=== PATIENT | female | born 1995 | race Caucasian/White ===

== ENCOUNTER 2021-09-06 18:47 | Inpatient (IN) | payer BC, SELFPAY ==
[2021-09-06 22:39] VITALS: BMI 27.9
[2021-09-06 23:12] VITALS: BP 93/71; PULSE 64; TEMP 36.2; O2SAT 97
--- NOTE | 2021-09-07 00:46 | PC.ADMIT ---
Patient is a 26 year old transgender female, admitted as a CV admission to [facility] from [facility] ED and arrived on the unit 09/06/21 at 1855. Patient was very tired and declined to sign legals and releases. She did answer a few questions and said that she was at [facility] earlier and had strong SI to cut her wrists and called an ambulance to transport her to [facility]. Patient lives in [place] with her family and has a history of alcohol use with several alcohol treatment center admissions. Patient also has a history of suicidality with no previous attempts reported. Patient's medications were verified with the patient as well as the list from [facility]. According to the [facility] assessment patient has a history of being off of her medications and will immediately start drinking alcohol again, apparently a pint of vodka straight. She has been sober since July 2021. Patient was given a brief orientation to the unit as well as a snack to eat. She claimed to be very tired and went to bed. At that time she mentioned that she wears pullups but did not elaborate. Dr. Mcmullen informed of admission and orders were obtained. Patient will be on 15 minute safety checks.
[2021-09-07 06:42] VITALS: BP 97/56; PULSE 55; RESP 14; TEMP 36.4; O2SAT 97
[2021-09-07] MEDS: Spironolactone 25 MG TABLET 50 MG PO ×2 (09:02→21:24)
[2021-09-07] MEDS: Escitalopram Oxalate 20 MG TABLET PO (09:02)
[2021-09-07 09:10] LABS: Estimated Average Glucose 94 mg/dL; Hemoglobin A1c % 4.9 %
--- NOTE | 2021-09-07 09:27 | PC.NURSE ---
Signed three-day on Thursday 09/07, up on Sunday 09/10
[2021-09-07 09:28] LABS: Alanine Aminotransferase 18 U/L (0-31); Alkaline Phosphatase 58 U/L (39-117); Anion Gap 12 (12-20); Aspartate Amino Transferase 15 U/L (5-31); Bilirubin Total 0.4 mg/dL (0.0-1.0); Blood Urea Nitrogen 12 mg/dL (9-16); Calcium 9.1 mg/dL (8.4-10.2); Carbon Dioxide 27 mmol/L (22-29); Chloride 104 mmol/L (96-108); Cholesterol 182 mg/dL; Creatinine Clr Calc Pharmacy 131.7; Estimated Glomerular Filt Rate > 60; Glucose Fasting 87 mg/dL (60-99); HDL Cholesterol 48 mg/dL; LDL Cholesterol Calculated 119 mg/dl; Potassium 4.8 mmol/L (3.3-5.1); Sodium 138 mmol/L (135-145); Total Protein 6.6 g/dL (6.5-8.0); Triglycerides 78 mg/dL
[2021-09-07 09:55] LABS: Free T4 (Free Thyroxine) 0.98 ng/dL (0.71-1.85); Thyroid Stimulating Hormone 1.24 uIU/mL (0.32-4.0)
[2021-09-07 10:01] LABS: Vitamin B12 631 pg/mL (200-900)
[2021-09-07] MEDS: hydrOXYzine HCL 50 MG TABLET PO ×2 (13:23→18:55)
[2021-09-07] MEDS: estradioL 0.5 MG TABLET 3 MG PO ×2 (13:23→21:25)
--- NOTE | 2021-09-07 16:01 | HO.PSYADMNOT ---
HPI Date of Service: 09/07/21 Chief Complaint: SI Sources of Information: patient interviewed, chart reviewed and crisis/core team assessment reviewed HPI Subjective Notes: Tellez Warning and Conditional Voluntary Healthcare Proxy: No Guardianship: No Medical Problems Affecting Mental Status: No Narrative: 26 yo transgender male to female, (Mar 2020), hx of Autism Spectrum disorder, alcohol use disorder, transfer from [facility] ER [facility]. Reported an increase in anxiety and resulting SI with plan to cut her wrist, an increase in depressive sx and anergia. Mother reported a correlation with increase in nicotine consumption and decline in mood-pt reportedly had been smoking prior to this report of symptoms. Today, Salina states I was suicidal on Monday because I lost a friend recently. Reports she is not feeling suicidal today and asks for discharge. She has signed a TDN and states she does not require this level of care. Reports she uses Lexapro for depressive sx with efficacy, however, this was stopped this past week due to increasing symptoms. Per mother, pt has had recent medicine changes which she has struggled with giving them time to take effect. Past Psychiatric History: IP: Reports a brief admit last week when her friend Reports a few admissions last month for depression Reports a history of admissions for depression in the past. OP: [facility] PCP Rich Huff is pt's prescriber [phone] Therapist and Prescriber to be assigned Per mother, no history of bipolar disorder Med review with [place], [place]. Message left with pt's mother to confirm status of Campral-not taking, Olanzapine- not taking, Clonidine-not taking, Omeprazole-uses prn Trials: Keppra, Campral, Clonidine, Gabapentin, Prozac, Abilify, Wellbutrin, Celexa SA: 2020 Hanging attempt Medical Evaluation Reviewed: Yes [facility] Narrative: Autism spectrum disorder-Asperger's by history Family History: Bipolar Social History: Lives with parents Born male, transition Mar 2020. Raised by parents. Two older sisters. Unemployed [employer]. Working on [employer] Substance History: Alcohol, Cannabis, Tobacco. Alcohol- 2015, last use July 2021. Hx of several rehab admits, most recently 3 weeks ago Attends Cann[facility]-last use 2019. using daily which made her ill so she stopped Nicotine-began in rehab-worsens her mental health sx Trauma History: Recent of a friend Losses of friendships Diagnostics Vital Signs (24Hr): Vital Signs - 24 hr 09/06/21 23:12 09/07/21 06:42 Temperature 97.1 F 97.6 F Pulse Rate 64 55 Respiratory Rate 14 Blood Pressure 93/71 97/56 L Pulse Oximetry 97 97 Oxygen Delivery Method Room Air Room Air BMI result Body Mass Index 27.9 Labs Results: 09/07/21 08:09 Labs: Laboratory Results - last 48 hr 09/07/21 09/07/21 09/07/21 08:09 08:09 08:09 Sodium 138 Potassium 4.8 Chloride 104 Carbon Dioxide 27 Anion Gap 12 BUN 12 Creatinine 0.82 Estim Creat Clear Calc 131.7 Estimated GFR > 60 Fasting Glucose 87 Estimat Average Glucose 94 Hemoglobin A1c % 4.9 Calcium 9.1 Total Bilirubin 0.4 AST 15 ALT 18 Alkaline Phosphatase 58 Total Protein 6.6 Albumin 4.0 Triglycerides 78 Cholesterol 182 LDL Cholesterol, Calc 119 HDL Cholesterol 48 Vitamin B12 631 Folate 18.0 TSH 1.24 Free T4 0.98 Meds/Allergies Meds Home Medications Medication Instructions Recorded Confirmed Type Lexapro 20 mg PO DAILY 09/06/21 09/06/21 History Strattera 40 mg PO DAILY 09/06/21 09/06/21 History estradiol 3 mg PO BID 09/06/21 09/06/21 History hydroxyzine HCl 50 mg PO Q4H PRN Anxiety 09/06/21 09/06/21 History spironolactone 50 mg PO BID 09/06/21 09/06/21 History Allergies Allergies Allergy/AdvReac Type Severity Reaction Status Date / Time naltrexone Allergy Unknown Unknown Verified 09/07/21 16:59 haloperidol [From Haldol] Allergy Unknown Verified 09/06/21 22:06 Penicillins Allergy Unknown Verified 09/06/21 20:32 zyprexa AdvReac Intermediate Confusion Uncoded 09/07/21 17:21 risperdal AdvReac Unknown Uncoded 09/08/21 10:27 Mental Status Exam Mental Status Exam Patient Appearance: Fatigued Patient Orientation: Person, Place, Time and Situation Level of Consciousness: Alert Patient Behavior: Guarded, Talkative, Cooperative, Suspicious, Anxious, Fearful, Fatigued and Distractible Mood Description: Anxious and Apprehensive Affect Description: Anxious and Apprehensive Patient Cognition Impaired: No Ability to Follow Directions: Good Speech Pattern: Spontaneous Speech, Soft-Spoken and Cofabulation Memory Description: Remote Impaired and Episodic Impaired Hallucinations: None Delusions: Not Present Perceptual Disturbances: Depersonalization and Derealization Thought Process: Distracted Thought Content: positive for [place], positive for Circumstantial, positive for Tangential and positive for Suicidal Ideation (denies) Depressive Symptoms: Increased Anxiety and Difficulty Concentrating Abnormal Motor Activity Signs and Symptoms: Restlessness Judgement: Fair Assessment & Plan Assessment & Plan (1) Autism spectrum disorder: Status: Acute Code(s): F84.0 - Autistic disorder (2) Recurrent major depression-severe: Status: Acute Code(s): F33.2 - Major depressive disorder, recurrent severe without psychotic features (3) Alcohol use disorder, moderate, in early remission, dependence: Status: Acute Code(s): F10.21 - Alcohol dependence, in remission Plan 26 yo female, hx of depression, autism spectrum-asperger's disorder, alcohol use disorder with several recent in pt admission for SI. Pt became suicidal while at the [facility] and is transferred from [facility]. Meds clarified with [facility], [facility] and pt's mother due to recent changes. Pt reports that she is no longer suicidal, had thoughts for 1-2 hours on 09/04, has good coping skills, has reasons to live and is asking to discharge. Plan: Re-establish regime- pt has had some recent changes and needs to allow time to evaluate efficacy. Family meeting with mom Collateral contact as needed. Patient educated on: therapeutic strategies Guardian/Caregiver educated on: therapeutic strategies Informed Consent: further education needed Reason for continued inpatient stay Substantial Risk for: harm to self, inability to function and rapid decompensation
[2021-09-07 17:20] VITALS: BP 88/48; PULSE 58; TEMP 36.4; O2SAT 98
[2021-09-07] MEDS: Gabapentin 400 MG CAPSULE 800 MG PO (21:25)
--- NOTE | 2021-09-07 22:33 | PC.NURSE ---
Salina spoke with this grant writer and said that she usually takes Gabapentin 800 mg po tid.
--- NOTE | 2021-09-07 22:34 | PC.NURSE ---
Patient retracted her 3 day notice and is back to being a CV admission.
[2021-09-08 06:00] VITALS: PULSE 58; TEMP 36.2; O2SAT 98
[2021-09-08] MEDS: Spironolactone 25 MG TABLET 50 MG PO ×2 (08:57→20:33)
[2021-09-08] MEDS: Escitalopram Oxalate 20 MG TABLET PO (08:57)
[2021-09-08] MEDS: estradioL 0.5 MG TABLET 3 MG PO ×2 (08:57→20:32)
[2021-09-08] MEDS: Gabapentin 400 MG CAPSULE 800 MG PO ×3 (08:57→20:34)
--- NOTE | 2021-09-08 09:14 | P.CONHOSP_ITS ---
History of Present Illness Data of Consult Service Date: 09/08/21 Primary Care Provider: Unknown Physician HPI Reason for consult: Routine Medical H&P Patient is seen and examined on M5, RN is present for the interview. Some parts of the H&P are obtained from the psychiatrist admission H&P as the patient is not forthcoming with baseline history. This is a 26 yo transgender M to F (per psych notes) who is admitted to M5. Medical consult requested for routine medical H&P. Pt currently denies any medical complaints. Pt denies any PMH/PSH/FH/SH -- please see the admission psych H&P for details. Review of Systems Review of Systems: patient not forthcoming with symptoms, but denies any medical complaints. [facility] Household Members: Family Housing: House Do you presently have visiting nurse or other home services: No Unable to assess alcohol history related to: Unknown Patient Tobacco Use Status: Current everyday Tobacco user Tobacco use type: Cigarette Cigarette Packs Per Day: 0.5 Cigarettes Per Day: 10.0 Years Smoked: 2 Smoked in Last 30 Days: Yes e-Cigarette/Vaping Use: Never Used Patient Interested in Nicotine Replacement: Yes Patient Given Instructions on How to Stop Smoking: Yes Date Education Initiated: 09/06/21 Second Hand Smoke Exposure: Yes Use of substances other than those prescribed or required for medical reasons: Yes Substance Use Type: Marijuana Substance Use Frequency: Occasionally Currently Displaying Signs/Symptoms of Drug Intoxication Withdrawal: No Any prior treatment program specific to substance use: Yes Have you been hit, kicked, punched, or otherwise hurt by someone within the past year? If so, by whom?: No Do you feel safe in your current relationship?: No Is there a partner from a previous relationship who is making you feel unsafe now?: No Spiritual Healthcare Practices: none Catholic Healthcare Practices: none Cultural Healthcare Practices: none Advance Directives: No Advance Directives Information Provided: No Do you have thoughts of harming others: None Do you have a plan to hurt others: No Plan Recently lost weight without trying: No How much weight loss: Not applicable Eating poorly because of decreased appetite: No Nutrition screen score: 0 Nutrition Risks: No Nutritional Risk Patient : No : No Poor oral hygiene: No service: No Sexual orientation: Transgender Meds Allergies Allergy/AdvReac Type Severity Reaction Status Date / Time naltrexone Allergy Unknown Unknown Verified 09/07/21 16:59 haloperidol [From Haldol] Allergy Unknown Verified 09/06/21 22:06 Penicillins Allergy Unknown Verified 09/06/21 20:32 zyprexa AdvReac Intermediate Confusion Uncoded 09/07/21 17:21 Active Medications: Current Medications Acetaminophen (Acetaminophen 325 Mg Tablet) 650 mg PO Q6H PRN PRN Reason: Headache/Pain Mild Scale (1-3) Al Hydroxide/Mg Hydroxide (Magnesium Hydrox/Alum Hydrox 30 Ml Oral.Susp) 30 ml PO Q6H PRN PRN Reason: Heartburn/Nausea Escitalopram Oxalate (Escitalopram Oxalate 20 Mg Tablet) 20 mg PO DAILY [facility] Last Admin: 09/08/21 08:57 Dose: 20 mg Estradiol (Estradiol 0.5 Mg Tablet) 3 mg PO BID [facility] Last Admin: 09/08/21 08:57 Dose: 3 mg Gabapentin (Gabapentin 400 Mg Capsule) 800 mg PO BID [facility] Last Admin: 09/08/21 08:57 Dose: 800 mg Hydroxyzine HCl (Hydroxyzine Hcl 25 Mg Tablet) 25 mg PO BEDTIME PRN PRN Reason: Anxiety Hydroxyzine HCl (Hydroxyzine Hcl 50 Mg Tablet) 50 mg PO Q4H PRN PRN Reason: Anxiety Last Admin: 09/07/21 18:55 Dose: 50 mg Magnesium Hydroxide (Milk Of Magnesia 30 Ml Oral.Susp) 30 ml PO DAILY PRN PRN Reason: Constipation Nicotine Polacrilex (Nicotine Polacrilex 2 Mg Gum) 4 mg BUCCAL Q2H PRN PRN Reason: Nicotine Cravings Non-Formulary Medication (Antabuse) 500 mg PO DAILY [facility] Non-Formulary Medication (Strattera) 40 mg PO DAILY [facility] Spironolactone (Spironolactone 25 Mg Tablet) 50 mg PO BID [facility] Last Admin: 09/08/21 08:57 Dose: 50 mg Trazodone HCl (Trazodone Hcl 50 Mg Tablet) 50 mg PO BEDTIME PRN PRN Reason: Insomnia Home Medications Medication Instructions Recorded Confirmed Last Taken Type Lexapro 20 mg PO DAILY 09/06/21 09/06/21 09/06/21 09:19 History Strattera 40 mg PO DAILY 09/06/21 09/06/21 Unknown History estradiol 3 mg PO BID 09/06/21 09/06/21 09/06/21 09:19 History hydroxyzine HCl 50 mg PO Q4H PRN Anxiety 09/06/21 09/06/21 09/06/21 09:19 History spironolactone 50 mg PO BID 09/06/21 09/06/21 09/06/21 09:18 History Physical Exam Vital Signs and Narrative: Vital Signs: Last Vital Signs Temp 97.1 F 09/08/21 06:00 Pulse 58 09/08/21 06:00 Resp 14 09/07/21 06:42 BP 88/48 L 09/07/21 17:20 Pulse Ox 98 09/08/21 06:00 O2 Del Method 09/08/21 06:00 BMI result Body Mass Index 27.9 Const: Other: General - no acute distress, appears comfortable Cardiovascular - regular rate and rhythm, S1-S2 Lungs - normal respiratory effort, clear to auscultation bilaterally, no wheezing Abdomen - soft, nontender, no rebound or guarding Extremities - no edema bilaterally Neuro - awake and alert, no focal deficits; cn 2-12 intact b/l Results Labs CBC and Chem 7: 09/07/21 08:09 Labs: Laboratory Results - last 24 hr 09/07/21 09/07/21 08:09 08:09 Anion Gap 12 Estim Creat Clear Calc 131.7 Estimated GFR > 60 Fasting Glucose 87 Calcium 9.1 Total Bilirubin 0.4 AST 15 ALT 18 Alkaline Phosphatase 58 Total Protein 6.6 Albumin 4.0 Triglycerides 78 Cholesterol 182 LDL Cholesterol, Calc 119 HDL Cholesterol 48 Vitamin B12 631 Folate 18.0 TSH 1.24 Free T4 0.98 Assessment and Plan (1) Routine medical exam: Status: Acute Plan 26 yo transgender M to F who is admitted to . Medical consult requested for routine medical H&P. The patient appaers to be medically stable at this time. Would continue baseline meds as appropriate. Will sign off at this time. Please reconsult PRN.
[2021-09-08] MEDS: hydrOXYzine HCL 50 MG TABLET PO ×2 (10:44→20:35)
--- NOTE | 2021-09-08 17:29 | P.PNPSI_ITS ---
Subjective Subjective Date of Service: 09/08/21 Reason For Visit: SI Subjective Notes: Conditional Voluntary Healthcare Proxy: No Guardianship: No Medical Problems Affecting Mental Status: No Interim History: Family meeting via Zoom with pt, parents, PCP, Candelario RUSSELL. Pt retracted TDN today. She started the meeting by talking about feeling Lexapro was not effective. Reports increased depression, social anxiety and not feeling any positive change. Parents discussed their observations of negative effects of Olanzapine on pt's mood and behavior when using. Discussed benzodiazepines helping anxiety and wanting to have these scheduled-review of effects on addictive illness. Parents suggested pt utilize time to discuss why she is depressed, anxious and why symptoms increase when she is not using substances, along with discussion of identification of the precipitant. Parents describe pt as having acute panic episodes where she calls 911, demands in pt care- resulting in 25 admissions to facilities in the past 4 months-she has been home the longest for 4-5 days at the end of May 2021. Pt asked appropriate questions regarding her hormone therapy and this possibly effecting her mood and emotions. Discussed how she finds smoking helpful-parents disagree as find pt has more emotional sx when using nicotine. Pt discussed feeling more emotions since becoming sober and feels her mental health has been less stable with stronger sobriety. States she is needing to learn about her emotions and feelings. Pt and parents identify a 3-4 day cycle of crisis and several recent admits and discharges. PCP discussed IOP options within the community to add more support and structure to her care. Medication Compliance: Yes Side effects from medications: No Attending Groups: Yes Review of Systems Acute medical concerns: No Medical Review of Systems: unchanged Review of Systems Reports behavioral changes Psychiatric: Reports anxiety, Reports behavioral changes, Reports depression, Reports difficulty concentrating, Reports mood swings and Reports suicidal ideation (denies today) Mental Status Exam Mental Status Exam Patient Appearance: Appropriate Patient Orientation: Person, Place, Time and Situation Level of Consciousness: Alert Patient Behavior: Talkative, Cooperative, Anxious, Fearful, Fatigued, Distractible, Isolative and Poor Eye Contact Mood Description: Anxious and Apprehensive Affect Description: Anxious and Apprehensive Patient Cognition Impaired: No Ability to Follow Directions: Good Speech Pattern: Spontaneous Speech and Soft-Spoken Memory Description: Episodic Impaired Hallucinations: None Delusions: Not Present Perceptual Disturbances: Depersonalization and Derealization Thought Process: Distracted Thought Content: positive for [place], positive for Circumstantial, positive for Tangential and positive for Suicidal Ideation (denies) Depressive Symptoms: Increased Anxiety and Difficulty Concentrating Abnormal Motor Activity Signs and Symptoms: Restlessness Judgement: Fair Diagnostics Vital Signs (24Hr): Vital Signs - 24 hr 09/08/21 06:00 Temperature 97.1 F Pulse Rate 58 Pulse Oximetry 98 Oxygen Delivery Method Room Air BMI result Body Mass Index 27.9 Labs Results: 09/07/21 08:09 Labs: Laboratory Results - last 48 hr 09/07/21 09/07/21 09/07/21 08:09 08:09 08:09 Sodium 138 Potassium 4.8 Chloride 104 Carbon Dioxide 27 Anion Gap 12 BUN 12 Creatinine 0.82 Estim Creat Clear Calc 131.7 Estimated GFR > 60 Fasting Glucose 87 Estimat Average Glucose 94 Hemoglobin A1c % 4.9 Calcium 9.1 Total Bilirubin 0.4 AST 15 ALT 18 Alkaline Phosphatase 58 Total Protein 6.6 Albumin 4.0 Triglycerides 78 Cholesterol 182 LDL Cholesterol, Calc 119 HDL Cholesterol 48 Vitamin B12 631 Folate 18.0 TSH 1.24 Free T4 0.98 Medications Medications Current Medications Acetaminophen (Acetaminophen 325 Mg Tablet) 650 mg PO Q6H PRN PRN Reason: Headache/Pain Mild Scale (1-3) Al Hydroxide/Mg Hydroxide (Magnesium Hydrox/Alum Hydrox 30 Ml Oral.Susp) 30 ml PO Q6H PRN PRN Reason: Heartburn/Nausea Escitalopram Oxalate (Escitalopram Oxalate 20 Mg Tablet) 20 mg PO DAILY [facility] Last Admin: 09/08/21 08:57 Dose: 20 mg Estradiol (Estradiol 0.5 Mg Tablet) 3 mg PO BID [facility] Last Admin: 09/08/21 08:57 Dose: 3 mg Gabapentin (Gabapentin 400 Mg Capsule) 800 mg PO TID [facility] Last Admin: 09/08/21 14:42 Dose: 800 mg Hydroxyzine HCl (Hydroxyzine Hcl 25 Mg Tablet) 25 mg PO BEDTIME PRN PRN Reason: Anxiety Hydroxyzine HCl (Hydroxyzine Hcl 50 Mg Tablet) 50 mg PO Q4H PRN PRN Reason: Anxiety Last Admin: 09/08/21 10:44 Dose: 50 mg Magnesium Hydroxide (Milk Of Magnesia 30 Ml Oral.Susp) 30 ml PO DAILY PRN PRN Reason: Constipation Nicotine Polacrilex (Nicotine Polacrilex 2 Mg Gum) 4 mg BUCCAL Q2H PRN PRN Reason: Nicotine Cravings Patient Own Med ( (Disulfiram 500mg)) 500 mg PO DAILY [facility] Last Admin: 09/08/21 14:40 Dose: 500 mg Spironolactone (Spironolactone 25 Mg Tablet) 50 mg PO BID [facility] Last Admin: 09/08/21 08:57 Dose: 50 mg Trazodone HCl (Trazodone Hcl 50 Mg Tablet) 50 mg PO BEDTIME PRN PRN Reason: Insomnia Allergies Allergies Allergy/AdvReac Type Severity Reaction Status Date / Time naltrexone Allergy Unknown Unknown Verified 09/07/21 16:59 haloperidol [From Haldol] Allergy Unknown Verified 09/06/21 22:06 Penicillins Allergy Unknown Verified 09/06/21 20:32 zyprexa AdvReac Intermediate Confusion Uncoded 09/07/21 17:21 risperdal AdvReac Unknown Uncoded 09/08/21 10:27 Assessment & Plan Assessment & Plan (1) Recurrent major depression-severe: Status: Acute Code(s): F33.2 - Major depressive disorder, recurrent severe without psychotic features (2) Autism spectrum disorder: Status: Acute Code(s): F84.0 - Autistic disorder (3) Alcohol use disorder, moderate, in early remission, dependence: Status: Acute Code(s): F10.21 - Alcohol dependence, in remission Plan Continue current regime. Discharge planning Focus with pt in group on coping skills, anxiety sx mgt. I spent minutes with the patient and/or on the patient floor today, greater than?50% of which was spent counseling/coordinating care. Patient educated on: diagnosis and therapeutic strategies Informed Consent: understands and further education needed Reason for contiued inpatient stay Substantial Risk for: inability to function and rapid decompensation
[2021-09-08 19:10] VITALS: BP 126/60; PULSE 87; TEMP 36.6
[2021-09-08] MEDS: traZODone HCL 50 MG TABLET PO (20:35)
[2021-09-09 06:57] VITALS: BP 114/65; PULSE 65; RESP 14; TEMP 36.1; O2SAT 99
[2021-09-09] MEDS: Spironolactone 25 MG TABLET 50 MG PO ×2 (08:36→21:17)
[2021-09-09] MEDS: Escitalopram Oxalate 20 MG TABLET PO (08:37)
[2021-09-09] MEDS: Gabapentin 400 MG CAPSULE 800 MG PO ×3 (08:37→21:17)
[2021-09-09] MEDS: estradioL 0.5 MG TABLET 3 MG PO ×2 (08:59→21:19)
[2021-09-09] MEDS: Acetaminophen 325 MG TABLET 650 MG PO (10:27)
[2021-09-09 14:43] VITALS: BMI 28.3
[2021-09-09] MEDS: hydrOXYzine HCL 50 MG TABLET PO (17:45)
[2021-09-09] MEDS: Magnesium Hydrox/Alum Hydrox 30 ML ORAL.SUSP PO (18:19)
--- NOTE | 2021-09-09 18:37 | P.PNPSI_ITS ---
Subjective Subjective Date of Service: 09/09/21 Reason For Visit: SI Subjective Notes: Conditional Voluntary Healthcare Proxy: No Guardianship: No Medical Problems Affecting Mental Status: No Interim History: Discussed pt's reports of Lexapro not being effective. Discussed Sertraline trial. Review of Karen literature with pt and FDA indicators with pt. Discussed cross titration,potential SE. Pt agrees to a low dose trial. Pt today is focused on eloping, the magnetic doors and the rationale for having safety writing instruments. These were discussed and pt references that her comments are joking in nature. Discussed need for wearing briefs and if she is experiencing sx that we need to have medically evaluated. She denies, stating that at times, when anxious, she has stress urinary incontinence. This occurs only when in hospital she reports, no issues when at home. Medication Compliance: Yes Side effects from medications: No Attending Groups: Yes Review of Systems Acute medical concerns: No Medical Review of Systems: unchanged Review of Systems Reports behavioral changes Psychiatric: Reports anxiety, Reports behavioral changes, Reports depression, Reports difficulty concentrating, Reports mood swings and Reports suicidal ideation (denies today) Mental Status Exam Mental Status Exam Patient Appearance: Appropriate Patient Orientation: Person, Place, Time and Situation Level of Consciousness: Alert Patient Behavior: Talkative, Cooperative, Anxious, Distractible and Good Eye Contact Mood Description: Apprehensive Affect Description: Apprehensive Patient Cognition Impaired: No Ability to Follow Directions: Good Speech Pattern: Spontaneous Speech and Soft-Spoken Memory Description: Episodic Impaired Hallucinations: None Delusions: Not Present Thought Process: Distracted Thought Content: positive for [place], positive for Circumstantial, positive for Tangential and positive for Suicidal Ideation (denies) Depressive Symptoms: Increased Anxiety and Difficulty Concentrating Abnormal Motor Activity Signs and Symptoms: Restlessness Judgement: Fair Diagnostics Vital Signs (24Hr): Vital Signs - 24 hr 09/08/21 19:10 09/09/21 06:57 Temperature 97.9 F 96.9 F Pulse Rate 87 65 Respiratory Rate 14 Blood Pressure 126/60 114/65 Pulse Oximetry 99 Oxygen Delivery Method Room Air BMI result Body Mass Index 28.3 Labs Results: 09/07/21 08:09 Medications Medications Current Medications Acetaminophen (Acetaminophen 325 Mg Tablet) 650 mg PO Q6H PRN PRN Reason: Headache/Pain Mild Scale (1-3) Last Admin: 09/09/21 10:27 Dose: 650 mg Al Hydroxide/Mg Hydroxide (Magnesium Hydrox/Alum Hydrox 30 Ml Oral.Susp) 30 ml PO Q6H PRN PRN Reason: Heartburn/Nausea Last Admin: 09/09/21 18:19 Dose: 30 ml Escitalopram Oxalate (Escitalopram Oxalate 20 Mg Tablet) 20 mg PO DAILY [facility] Last Admin: 09/09/21 08:37 Dose: 20 mg Estradiol (Estradiol 0.5 Mg Tablet) 3 mg PO BID [facility] Last Admin: 09/09/21 08:59 Dose: 3 mg Gabapentin (Gabapentin 400 Mg Capsule) 800 mg PO TID [facility] Last Admin: 09/09/21 14:23 Dose: 800 mg Hydroxyzine HCl (Hydroxyzine Hcl 25 Mg Tablet) 25 mg PO BEDTIME PRN PRN Reason: Anxiety Hydroxyzine HCl (Hydroxyzine Hcl 50 Mg Tablet) 50 mg PO Q4H PRN PRN Reason: Anxiety Last Admin: 09/09/21 17:45 Dose: 50 mg Magnesium Hydroxide (Milk Of Magnesia 30 Ml Oral.Susp) 30 ml PO DAILY PRN PRN Reason: Constipation Nicotine Polacrilex (Nicotine Polacrilex 2 Mg Gum) 4 mg BUCCAL Q2H PRN PRN Reason: Nicotine Cravings Patient Own Med ( (Disulfiram 500mg)) 500 mg PO DAILY [facility] Last Admin: 09/09/21 08:38 Dose: 500 mg Spironolactone (Spironolactone 25 Mg Tablet) 50 mg PO BID [facility] Last Admin: 09/09/21 08:36 Dose: 50 mg Trazodone HCl (Trazodone Hcl 50 Mg Tablet) 50 mg PO BEDTIME PRN PRN Reason: Insomnia Last Admin: 09/08/21 20:35 Dose: 50 mg Allergies Allergies Allergy/AdvReac Type Severity Reaction Status Date / Time naltrexone Allergy Unknown Unknown Verified 09/07/21 16:59 haloperidol [From Haldol] Allergy Unknown Verified 09/06/21 22:06 Penicillins Allergy Unknown Verified 09/06/21 20:32 zyprexa AdvReac Intermediate Confusion Uncoded 09/07/21 17:21 risperdal AdvReac Unknown Uncoded 09/08/21 10:27 Assessment & Plan Assessment & Plan (1) Recurrent major depression-severe: Status: Acute Code(s): F33.2 - Major depressive disorder, recurrent severe without psychotic features (2) Autism spectrum disorder: Status: Acute Code(s): F84.0 - Autistic disorder (3) Alcohol use disorder, moderate, in early remission, dependence: Status: Acute Code(s): F10.21 - Alcohol dependence, in remission Plan Continue current regime. Discharge planning Focus with pt in group on coping skills, anxiety sx mgt. 09/09/21 Sertraline 25 mg a.m. to begin 09/10. I spent minutes with the patient and/or on the patient floor today, greater than?50% of which was spent counseling/coordinating care. Patient educated on: medication risk/benefits, therapeutic strategies and medical condition Informed Consent: further education needed Reason for contiued inpatient stay Substantial Risk for: harm to self
[2021-09-09 20:30] VITALS: BP 118/65; PULSE 89; TEMP 37.1
[2021-09-09] MEDS: QUEtiapine Fumarate 25 MG TABLET PO (21:24)
[2021-09-09] MEDS: traZODone HCL 50 MG TABLET PO (23:04)
[2021-09-10] MEDS: traZODone HCL 50 MG TABLET PO ×2 (00:55→20:08)
[2021-09-10 06:00] VITALS: BP 126/77; PULSE 78; RESP 14; TEMP 36.6; O2SAT 97
[2021-09-10] MEDS: Gabapentin 400 MG CAPSULE 800 MG PO ×3 (08:49→20:08)
[2021-09-10] MEDS: Spironolactone 25 MG TABLET 50 MG PO ×2 (08:49→20:08)
[2021-09-10] MEDS: Acetaminophen 325 MG TABLET 650 MG PO ×2 (08:49→20:08)
[2021-09-10] MEDS: Escitalopram Oxalate 20 MG TABLET PO (08:49)
[2021-09-10] MEDS: estradioL 0.5 MG TABLET 3 MG PO ×2 (08:50→20:08)
[2021-09-10] MEDS: Sertraline HCL 25 MG TABLET PO (08:50)
[2021-09-10] MEDS: hydrOXYzine HCL 50 MG TABLET PO (10:33)
[2021-09-10] MEDS: QUEtiapine Fumarate 25 MG TABLET PO ×2 (10:33→20:08)
[2021-09-10 15:16] VITALS: BMI 28.3
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
[2021-09-10] MEDS: hydrOXYzine HCL 25 MG TABLET PO (20:08)
[2021-09-11 06:44] VITALS: BP 95/52; PULSE 62; RESP 14; TEMP 36.4; O2SAT 99
[2021-09-11] MEDS: Spironolactone 25 MG TABLET 50 MG PO ×2 (09:14→22:03)
[2021-09-11] MEDS: hydrOXYzine HCL 50 MG TABLET PO ×2 (09:14→15:55)
[2021-09-11] MEDS: Gabapentin 400 MG CAPSULE 800 MG PO ×3 (09:14→21:59)
[2021-09-11] MEDS: Escitalopram Oxalate 20 MG TABLET PO (09:15)
[2021-09-11] MEDS: Sertraline HCL 25 MG TABLET PO (09:15)
[2021-09-11] MEDS: estradioL 0.5 MG TABLET 3 MG PO ×2 (09:15→21:58)
[2021-09-11] MEDS: Acetaminophen 325 MG TABLET 650 MG PO (12:19)
[2021-09-11] MEDS: QUEtiapine Fumarate 25 MG TABLET PO (13:16)
--- NOTE | 2021-09-11 17:28 | HO.PSYCHPN ---
Subjective Subjective Date of Service: 09/11/21 Reason For Visit: SI Interim History: Patient intrusive to others, asking the same question repeatedly, trouble accepting answers. Patient said still depressed and waiting for Zoloft to kick in. Continues to have intermittent suicidal ideation but uses Seroquel effectively to help cope. Denies any medication side effects. Wanted to discuss whether not could increase Zoloft but typewriter ribbon winder discussed case and since patient is currently on 2 SSRIs will defer to primary team which patient accepted. Mental Status Exam Mental Status Exam Patient Appearance: Appropriate Patient Orientation: Person, Place, Time and Situation Level of Consciousness: Alert Patient Behavior: Talkative, Cooperative, Distractible and Good Eye Contact Mood Description: Constricted and Cheerful Affect Description: Constricted Patient Cognition Impaired: No Ability to Follow Directions: Good Speech Pattern: Spontaneous Speech and Soft-Spoken Memory Description: Episodic Impaired Hallucinations: None Delusions: Not Present Thought Process: Distracted Thought Content: positive for [place], positive for Circumstantial, positive for Tangential and positive for Suicidal Ideation (denies) Depressive Symptoms: Increased Anxiety and Difficulty Concentrating Abnormal Motor Activity Signs and Symptoms: Restlessness Judgement: Fair Diagnostics Vital Signs (24Hr): Vital Signs - 24 hr 09/11/21 06:44 Temperature 97.6 F Pulse Rate 62 Respiratory Rate 14 Blood Pressure 95/52 L Pulse Oximetry 99 Oxygen Delivery Method Room Air BMI result Body Mass Index 28.3 Labs Results: 09/07/21 08:09 Medications Medications Current Medications Acetaminophen (Acetaminophen 325 Mg Tablet) 650 mg PO Q6H PRN PRN Reason: Headache/Pain Mild Scale (1-3) Last Admin: 09/11/21 12:19 Dose: 650 mg Al Hydroxide/Mg Hydroxide (Magnesium Hydrox/Alum Hydrox 30 Ml Oral.Susp) 30 ml PO Q6H PRN PRN Reason: Heartburn/Nausea Last Admin: 09/09/21 18:19 Dose: 30 ml Escitalopram Oxalate (Escitalopram Oxalate 20 Mg Tablet) 20 mg PO DAILY [facility] Last Admin: 09/11/21 09:15 Dose: 20 mg Estradiol (Estradiol 0.5 Mg Tablet) 3 mg PO BID [facility] Last Admin: 09/11/21 09:15 Dose: 3 mg Gabapentin (Gabapentin 400 Mg Capsule) 800 mg PO TID [facility] Last Admin: 09/11/21 15:11 Dose: 800 mg Hydroxyzine HCl (Hydroxyzine Hcl 25 Mg Tablet) 25 mg PO BEDTIME PRN PRN Reason: Anxiety Last Admin: 09/10/21 20:08 Dose: 25 mg Hydroxyzine HCl (Hydroxyzine Hcl 50 Mg Tablet) 50 mg PO Q4H PRN PRN Reason: Anxiety Last Admin: 09/11/21 15:55 Dose: 50 mg Magnesium Hydroxide (Milk Of Magnesia 30 Ml Oral.Susp) 30 ml PO DAILY PRN PRN Reason: Constipation Nicotine Polacrilex (Nicotine Polacrilex 2 Mg Gum) 4 mg BUCCAL Q2H PRN PRN Reason: Nicotine Cravings Patient Own Med ( (Disulfiram 500mg)) 500 mg PO DAILY [facility] Last Admin: 09/11/21 09:15 Dose: 500 mg Quetiapine Fumarate (Quetiapine Fumarate 25 Mg Tablet) 25 mg PO BID PRN PRN Reason: anxiety, agitation, insomnia Last Admin: 09/11/21 13:16 Dose: 25 mg Sertraline HCl (Sertraline Hcl 25 Mg Tablet) 25 mg PO DAILY [facility] Last Admin: 09/11/21 09:15 Dose: 25 mg Spironolactone (Spironolactone 25 Mg Tablet) 50 mg PO BID [facility] Last Admin: 09/11/21 09:14 Dose: 50 mg Trazodone HCl (Trazodone Hcl 50 Mg Tablet) 50 mg PO BEDTIME PRN PRN Reason: Insomnia Last Admin: 09/10/21 20:08 Dose: 50 mg Allergies Allergies Allergy/AdvReac Type Severity Reaction Status Date / Time naltrexone Allergy Unknown Unknown Verified 09/07/21 16:59 haloperidol [From Haldol] Allergy Unknown Verified 09/06/21 22:06 Penicillins Allergy Unknown Verified 09/06/21 20:32 zyprexa AdvReac Intermediate Confusion Uncoded 09/07/21 17:21 risperdal AdvReac Unknown Uncoded 09/08/21 10:27 Assessment & Plan Assessment & Plan (1) Recurrent major depression-severe: Status: Acute Code(s): F33.2 - Major depressive disorder, recurrent severe without psychotic features (2) Autism spectrum disorder: Status: Acute Code(s): F84.0 - Autistic disorder (3) Alcohol use disorder, moderate, in early remission, dependence: Status: Acute Code(s): F10.21 - Alcohol dependence, in remission Plan Continue current regime. Discharge planning Focus with pt in group on coping skills, anxiety sx mgt. 09/10/21- Continue Sertraline 09/11/21 continue current treatment regimen; defer to primary team for titration of medications I spent minutes with the patient and/or on the patient floor today, greater than?50% of which was spent counseling/coordinating care. Patient educated on: medication risk/benefits Informed Consent: understands Reason for contiued inpatient stay Substantial Risk for: rapid decompensation
[2021-09-11 18:00] VITALS: BP 126/75; PULSE 80; RESP 18; TEMP 37; O2SAT 100
[2021-09-11] MEDS: Magnesium Hydrox/Alum Hydrox 30 ML ORAL.SUSP PO (18:13)
[2021-09-11] MEDS: traZODone HCL 50 MG TABLET PO (22:07)
[2021-09-12 06:00] VITALS: BP 123/71; PULSE 68; RESP 16; TEMP 36.3; O2SAT 97
[2021-09-12] MEDS: Acetaminophen 325 MG TABLET 650 MG PO (06:04)
[2021-09-12] MEDS: estradioL 0.5 MG TABLET 3 MG PO ×2 (08:00→21:44)
[2021-09-12] MEDS: Sertraline HCL 25 MG TABLET PO (08:00)
[2021-09-12] MEDS: Spironolactone 25 MG TABLET 50 MG PO ×2 (08:01→21:44)
[2021-09-12] MEDS: Escitalopram Oxalate 20 MG TABLET PO (08:01)
[2021-09-12] MEDS: Gabapentin 400 MG CAPSULE 800 MG PO ×3 (08:01→21:44)
[2021-09-12] MEDS: hydrOXYzine HCL 50 MG TABLET PO (10:22)
--- NOTE | 2021-09-12 16:38 | HO.PSYCHPN ---
Subjective Subjective Date of Service: 09/12/21 Reason For Visit: SI Interim History: Late entry note for patient seen 09/12 Patient lying in bed awake but resting. Denies any complaints and has no requests. Throughout the day however patient remains intrusive and repeating questions when not liking the answer. Mental Status Exam Mental Status Exam Patient Appearance: Appropriate and Unkempt (hair, cloths) Patient Orientation: Person, Place, Time and Situation Level of Consciousness: Alert Patient Behavior: Talkative, Distractible, Good Eye Contact and Impulsive Mood Description: Depressed Affect Description: Constricted Patient Cognition Impaired: No Ability to Follow Directions: Good Speech Pattern: Clear and Spontaneous Speech Memory Description: Episodic Impaired Hallucinations: None Delusions: Not Present Thought Process: Distracted and Goal Oriented Thought Content: positive for [place], positive for Circumstantial, positive for Suicidal Ideation (intermitent) and positive for Homicidal Ideation (none) Depressive Symptoms: Increased Anxiety and Difficulty Concentrating Abnormal Motor Activity Signs and Symptoms: Restlessness Judgement and Insight: impaired, possibly baseline Diagnostics Vital Signs (24Hr): Vital Signs - 24 hr 09/12/21 18:00 09/13/21 06:00 Temperature 98.4 F 97.4 F Pulse Rate 73 76 Respiratory Rate 18 Blood Pressure 121/63 122/78 Pulse Oximetry 98 BMI result Body Mass Index 28.3 Labs Results: 09/07/21 08:09 Medications Medications Current Medications Acetaminophen (Acetaminophen 325 Mg Tablet) 650 mg PO Q6H PRN PRN Reason: Headache/Pain Mild Scale (1-3) Last Admin: 09/12/21 06:04 Dose: 650 mg Al Hydroxide/Mg Hydroxide (Magnesium Hydrox/Alum Hydrox 30 Ml Oral.Susp) 30 ml PO Q6H PRN PRN Reason: Heartburn/Nausea Last Admin: 09/11/21 18:13 Dose: 30 ml Escitalopram Oxalate (Escitalopram Oxalate 20 Mg Tablet) 20 mg PO DAILY [facility] Last Admin: 09/13/21 08:00 Dose: 20 mg Estradiol (Estradiol 0.5 Mg Tablet) 3 mg PO BID [facility] Last Admin: 09/13/21 08:01 Dose: 3 mg Gabapentin (Gabapentin 400 Mg Capsule) 800 mg PO TID [facility] Last Admin: 09/13/21 08:00 Dose: 800 mg Hydroxyzine HCl (Hydroxyzine Hcl 25 Mg Tablet) 25 mg PO BEDTIME PRN PRN Reason: Anxiety Last Admin: 09/10/21 20:08 Dose: 25 mg Hydroxyzine HCl (Hydroxyzine Hcl 50 Mg Tablet) 50 mg PO Q4H PRN PRN Reason: Anxiety Last Admin: 09/12/21 10:22 Dose: 50 mg Magnesium Hydroxide (Milk Of Magnesia 30 Ml Oral.Susp) 30 ml PO DAILY PRN PRN Reason: Constipation Nicotine Polacrilex (Nicotine Polacrilex 2 Mg Gum) 4 mg BUCCAL Q2H PRN PRN Reason: Nicotine Cravings Patient Own Med ( (Disulfiram 500mg)) 500 mg PO DAILY [facility] Last Admin: 09/13/21 08:01 Dose: 500 mg Quetiapine Fumarate (Quetiapine Fumarate 25 Mg Tablet) 25 mg PO BID PRN PRN Reason: anxiety, agitation, insomnia Last Admin: 09/13/21 06:23 Dose: 25 mg Sertraline HCl (Sertraline Hcl 25 Mg Tablet) 25 mg PO DAILY [facility] Last Admin: 09/13/21 08:00 Dose: 25 mg Spironolactone (Spironolactone 25 Mg Tablet) 50 mg PO BID [facility] Last Admin: 09/13/21 08:00 Dose: 50 mg Trazodone HCl (Trazodone Hcl 50 Mg Tablet) 50 mg PO BEDTIME PRN PRN Reason: Insomnia Last Admin: 09/11/21 22:07 Dose: 50 mg Allergies Allergies Allergy/AdvReac Type Severity Reaction Status Date / Time naltrexone Allergy Unknown Unknown Verified 09/07/21 16:59 haloperidol [From Haldol] Allergy Unknown Verified 09/06/21 22:06 Penicillins Allergy Unknown Verified 09/06/21 20:32 zyprexa AdvReac Intermediate Confusion Uncoded 09/07/21 17:21 risperdal AdvReac Unknown Uncoded 09/08/21 10:27 Assessment & Plan Assessment & Plan (1) Recurrent major depression-severe: Status: Acute Code(s): F33.2 - Major depressive disorder, recurrent severe without psychotic features (2) Autism spectrum disorder: Status: Acute Code(s): F84.0 - Autistic disorder (3) Alcohol use disorder, moderate, in early remission, dependence: Status: Acute Code(s): F10.21 - Alcohol dependence, in remission Plan Continue current regime. Discharge planning Focus with pt in group on coping skills, anxiety sx mgt. 6/17/22- Continue Sertraline 09/11/21 continue current treatment regimen; defer to primary team for titration of medications 09/12/21 continue current treatment regimen; I spent minutes with the patient and/or on the patient floor today, greater than?50% of which was spent counseling/coordinating care. Reason for contiued inpatient stay Substantial Risk for: med/psych decompensation
[2021-09-12 18:00] VITALS: BP 121/63; PULSE 73; TEMP 36.9
[2021-09-12] MEDS: QUEtiapine Fumarate 25 MG TABLET PO (18:25)
[2021-09-13 06:00] VITALS: BP 122/78; PULSE 76; RESP 18; TEMP 36.3; O2SAT 98
[2021-09-13] MEDS: QUEtiapine Fumarate 25 MG TABLET PO (06:23)
[2021-09-13] MEDS: Sertraline HCL 25 MG TABLET PO (08:00)
[2021-09-13] MEDS: Spironolactone 25 MG TABLET 50 MG PO ×2 (08:00→22:23)
[2021-09-13] MEDS: Gabapentin 400 MG CAPSULE 800 MG PO ×3 (08:00→22:24)
[2021-09-13] MEDS: Escitalopram Oxalate 20 MG TABLET PO (08:00)
[2021-09-13] MEDS: estradioL 0.5 MG TABLET 3 MG PO ×2 (08:01→22:24)
[2021-09-13] MEDS: LORazepam 1 MG TABLET PO (12:51)
[2021-09-13] MEDS: diphenhydrAMINE HCL 25 MG TABLET PO (12:51)
[2021-09-13] MEDS: chlorproMAZINE HCl 25 MG TABLET 50 MG PO (12:51)
[2021-09-13] MEDS: LORazepam 2 MG/ML VIAL 1 MG IM (13:51)
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
--- NOTE | 2021-09-13 17:10 | P.PNPSI_ITS ---
Subjective Subjective Date of Service: 09/13/21 Reason For Visit: SI Subjective Notes: Conditional Voluntary Healthcare Proxy: No Guardianship: No Medical Problems Affecting Mental Status: No Interim History: Team reports pt had a weekend that was difficult with behavioral symptoms requiring limits. Team report manipulative symptoms, provocative modulation of affect, and finding two pens pt had hidden in her pants requiring search. Intrusive sx as well with repetitive questioning when she did not agree with the answer. Difficulty with unit limits, safety policies and challenging these c onsistently. Pt also reported to have had social difficulty with other peers- asking questions about , about personal boundaries, causing discomfort in the milieu. Discussed in team that this milieu may not be the most helpful for pt at this time. Tolerating Sertraline without SE-will begin Lexapro tapering today. Family meeting via Zoom with pt parents, and Candelario RUSSELL. Pt was deferring of responsibility-accusatory of symptoms presented that were not actual over the weekend, blaming of others and unable to report accurately on reported behaviors. Review of concerns and that this milieu is not the best for assisting pt to identify causes of her increases in anxiety and resulting i ntermittent intense SI. Parents were very supportive of Salina, asking her about behaviors, encouraging her to work on symptoms. As discussion progressed, discharge for today was discussed. Salina became angry and fixated on her lack of safety, although this has not been her focus since admission. She told parents and team that she was not ready to leave, that she was promised another ten days and she would be unsafe to leave the hospital. Mother pointed out that pt has not been on Strattera since hospitalization. Discussed that insurance would not allow a refill of Strattera from an outside pharmacy on admission as pt had a supply at her home. Mother will bring in Strattera today. Pt discussed ther intense suicidality. Discussed that she has not been working in groups/milieu on safety and understanding symptoms. She believes she has been doing this. Decision was made to extend hospitalization until 09/15 to see if she was able to increase milieu utilization for her benefit. All agreed. Team met with pt after family meeting to discuss behaviors, reasons for behaviors and expression of feelings vs behavioral acting out. Pt was clear, insightful and understanding of how her behaviors effect milieu, peers and how these interfere with her getting benefit from treatment. She agreed that she would attempt to increase appropriate use of the milieu. Shortly after meeting was completed, pt was in milieu sharing with peers that she was suicidal and would harm herself. She engaged in SIBS, was assaultive to team and requested Haldol (allergy), Ativan, Benadryl. Nurse biomedical manager, Sarita Sheffield RN worked with pt to negotiate a prn to assist her-Chlorpromazine 50 mg, Ativan 50 mg, Benadryl 50 mg po. Pt accepted then became aggressive, requiring restraint (chair restraint). She accepted 1 mg Ativan IM at that time. Pt on one to one thereafter. Call to parents with Candelario Resendez [facility]-parents will visit pt this afternoon. Discussed focus of pt's symptoms appearing to be behavioral vs psychotic or manic in origin. Will continue to work with pt/family on utilization of milieu for benefit. Medication Compliance: Yes Side effects from medications: No Attending Groups: Yes Review of Systems Acute medical concerns: No Medical Review of Systems: unchanged Review of Systems Reports behavioral changes Psychiatric: Reports behavioral changes, Reports irritability and Reports suicidal ideation Mental Status Exam Mental Status Exam Patient Appearance: Fatigued and Disheveled Patient Orientation: Person, Place, Time and Situation Level of Consciousness: Alert Patient Behavior: Talkative, Anxious, Resistive to Care, Invasion - Personal Space, Avoidant, Distractible, Good Eye Contact, Uncooperative and Impulsive Mood Description: Happy, Relaxed and Apprehensive Affect Description: Labile Patient Cognition Impaired: No Ability to Follow Directions: Poor Speech Pattern: Spontaneous Speech and Coherent Memory Description: Episodic Impaired Hallucinations: None Delusions: Not Present Perceptual Disturbances: Derealization Thought Process: Illogical, Distracted and Evasive Thought Content: positive for [place], positive for Circumstantial, positive for Goal Oriented, positive for Preoccupation, positive for Evasive and positive for Suicidal Ideation Depressive Symptoms: Increased Anxiety, Thoughts of /Suicide and Low Self Esteem Abnormal Motor Activity Signs and Symptoms: Restlessness Judgement: Fair Diagnostics Vital Signs (24Hr): Vital Signs - 24 hr 09/12/21 18:00 09/13/21 06:00 Temperature 98.4 F 97.4 F Pulse Rate 73 76 Respiratory Rate 18 Blood Pressure 121/63 122/78 Pulse Oximetry 98 BMI result Body Mass Index 28.3 Labs Results: 09/07/21 08:09 Medications Medications Current Medications Acetaminophen (Acetaminophen 325 Mg Tablet) 650 mg PO Q6H PRN PRN Reason: Headache/Pain Mild Scale (1-3) Last Admin: 09/12/21 06:04 Dose: 650 mg Al Hydroxide/Mg Hydroxide (Magnesium Hydrox/Alum Hydrox 30 Ml Oral.Susp) 30 ml PO Q6H PRN PRN Reason: Heartburn/Nausea Last Admin: 09/11/21 18:13 Dose: 30 ml Escitalopram Oxalate (Escitalopram Oxalate 10 Mg Tablet) 10 mg PO DAILY [facility] Estradiol (Estradiol 0.5 Mg Tablet) 3 mg PO BID [facility] Last Admin: 09/13/21 08:01 Dose: 3 mg Gabapentin (Gabapentin 400 Mg Capsule) 800 mg PO TID [facility] Last Admin: 09/13/21 14:57 Dose: 800 mg Hydroxyzine HCl (Hydroxyzine Hcl 25 Mg Tablet) 25 mg PO BEDTIME PRN PRN Reason: Anxiety Last Admin: 09/10/21 20:08 Dose: 25 mg Hydroxyzine HCl (Hydroxyzine Hcl 50 Mg Tablet) 50 mg PO Q4H PRN PRN Reason: Anxiety Last Admin: 09/12/21 10:22 Dose: 50 mg Magnesium Hydroxide (Milk Of Magnesia 30 Ml Oral.Susp) 30 ml PO DAILY PRN PRN Reason: Constipation Nicotine Polacrilex (Nicotine Polacrilex 2 Mg Gum) 4 mg BUCCAL Q2H PRN PRN Reason: Nicotine Cravings Patient Own Med ( (Disulfiram 500mg)) 500 mg PO DAILY [facility] Last Admin: 09/13/21 08:01 Dose: 500 mg Patient Own Med ( (Strattera 40 Mg)) 40 mg PO DAILY [facility] Sertraline HCl (Sertraline Hcl 25 Mg Tablet) 25 mg PO DAILY [facility] Last Admin: 09/13/21 08:00 Dose: 25 mg Spironolactone (Spironolactone 25 Mg Tablet) 50 mg PO BID [facility] Last Admin: 09/13/21 08:00 Dose: 50 mg Trazodone HCl (Trazodone Hcl 50 Mg Tablet) 50 mg PO BEDTIME PRN PRN Reason: Insomnia Last Admin: 09/11/21 22:07 Dose: 50 mg Allergies Allergies Allergy/AdvReac Type Severity Reaction Status Date / Time naltrexone Allergy Unknown Unknown Verified 09/07/21 16:59 haloperidol [From Haldol] Allergy Unknown Verified 09/06/21 22:06 Penicillins Allergy Unknown Verified 09/06/21 20:32 zyprexa AdvReac Intermediate Confusion Uncoded 09/07/21 17:21 risperdal AdvReac Unknown Uncoded 09/08/21 10:27 Assessment & Plan Assessment & Plan (1) Recurrent major depression-severe: Status: Acute Code(s): F33.2 - Major depressive disorder, recurrent severe without psychotic features (2) Autism spectrum disorder: Status: Acute Code(s): F84.0 - Autistic disorder (3) Alcohol use disorder, moderate, in early remission, dependence: Status: Acute Code(s): F10.21 - Alcohol dependence, in remission Plan Continue current regime. Discharge planning Focus with pt in group on coping skills, anxiety sx mgt. 09/10/21- Continue Sertraline 09/11/21 continue current treatment regimen; defer to primary team for titration of medications 09/12/21 continue current treatment regimen; 09/13/21: Decrease Lexapro to 10 mg daily Behavioral interventions, discussion of discharge with parents I spent minutes with the patient and/or on the patient floor today, greater than?50% of which was spent counseling/coordinating care. Patient educated on: medication risk/benefits and therapeutic strategies Informed Consent: further education needed Reason for contiued inpatient stay Substantial Risk for: harm to self, inability to function and rapid decompensation
[2021-09-14 06:00] VITALS: BP 121/74; PULSE 80; RESP 18; TEMP 36.4; O2SAT 100
[2021-09-14] MEDS: Gabapentin 400 MG CAPSULE 800 MG PO ×3 (08:04→19:02)
[2021-09-14] MEDS: Spironolactone 25 MG TABLET 50 MG PO ×2 (08:05→19:46)
[2021-09-14] MEDS: estradioL 0.5 MG TABLET 3 MG PO ×2 (08:05→19:02)
[2021-09-14] MEDS: Sertraline HCL 25 MG TABLET PO (08:06)
[2021-09-14] MEDS: Escitalopram Oxalate 10 MG TABLET PO (08:06)
[2021-09-14] MEDS: LORazepam 2 MG/ML VIAL 1 MG IM (09:02)
[2021-09-14] MEDS: diphenhydrAMINE HCL 50 MG/ML VIAL 25 MG IM (09:02)
--- NOTE | 2021-09-14 11:54 | PC.NURSE ---
Pt agitated and punching herself in he face and biting her arm as she reports that she wants the pain to stop . Pt unable to elaborate further on feelings and continues to self harm with no response to de-escalation. Security called to assist and at 0845 Pt restrained 4 point. Orders obtained from provider Edna Guerrero. Sanitation Laborer Mariaa holguin. Pt given IM medications at 0902. Pt contracted for safety with a 1:1 close observation at 0945 and was released from 4 point restraints. Pt mother was contacted at 1100. Pts mother reports that Pt has never exhibited behaviors to self harm in the past.
[2021-09-14] MEDS: Divalproex Sodium 250 MG TABLET.DR PO ×2 (13:43→19:02)
[2021-09-14] MEDS: hydrOXYzine HCL 50 MG TABLET PO (16:53)
[2021-09-14] MEDS: chlorproMAZINE HCl 25 MG TABLET 50 MG PO ×2 (16:53→19:02)
[2021-09-14 18:16] VITALS: BP 115/75; PULSE 93
[2021-09-14] MEDS: hydrOXYzine HCL 25 MG TABLET PO (19:02)
--- NOTE | 2021-09-14 19:26 | HO.PSYCHPN ---
Subjective Subjective Date of Service: 09/14/21 Reason For Visit: SI Subjective Notes: Conditional Voluntary Interim History: Pt requiring restraint early in the day. Reporting SI with plan, [id number] [id number], hitting herself. Requested prn medication and requested restraint. Calmed and in milieu by 11am. One to one maintained. Discussed with pt ongoing care. I want to be here for at least 6 months . Discussed with pt that she has several needs which are to be addressed. Reports she feels comfortable here with the team and believes she can improve here. Discussed being out of her home area-she does not feel an effect from this. Discussed application for services with pt which she believes is a good idea. [place] issues and behavioral issues continue. Pt is verbally inappropriate with her peers without much insight-she hears the issues presented, states she will not engage in the behavior, then returns to the behavior which was just discussed. Discussed case in team. Given the several number of hospitalizations since Apr 2021, call to [facility] animal daycare provider, Renee to discuss treatment planning and the possibility of a longer term in pt stay so services can be put in place for pt in community. [facility] is willing to assist as much as they can. Search for facilities close to [place], [place] and found [facility] (pt is too old-per their site max age is 24) and per [facility] suggestion [facility]. Discussed basics of a hospital transfer with [facility]-they are willing and would need to talk with pt and parents. Will proceed when pt is feeling better on 09/15. Care discussed with Kristel Orellana, Director of Behavioral Health, who will reach out to our [facility] colleagues regarding if services can be applied for while pt is in [place] or if she would be better served at a facility in [place]. Currently, it appears no therapist in place, possibly one upcoming, Dr. Rich Huff of [facility] for medications. [facility] to facilitate connections. Pt has re-started Strattera without adverse event as parents brought in her supply from home. Medication Compliance: Yes Side effects from medications: No Attending Groups: No (behaviorally inappropriate) Review of Systems Acute medical concerns: No Medical Review of Systems: unchanged Review of Systems Reports other (pt hit herself in the nose this a.m. No overt injury noted) Comments: Salina has a small s Mental Status Exam Mental Status Exam Patient Appearance: Fatigued and Unkempt Patient Orientation: Person, Place, Time and Situation Level of Consciousness: Alert Patient Behavior: Talkative, Sedated, Distractible, Good Eye Contact and Impulsive Mood Description: Labile Affect Description: Labile Patient Cognition Impaired: No Ability to Follow Directions: Good Speech Pattern: Spontaneous Speech Memory Description: Intact Hallucinations: None Delusions: Not Present Thought Process: Distracted, Rumination and Evasive Thought Content: positive for Circumstantial, positive for Perseveration, positive for Preoccupation, positive for Evasive and positive for Suicidal Ideation Depressive Symptoms: Increased Anxiety, Diff. Making Decisions and Hopelessness Abnormal Motor Activity Signs and Symptoms: Aggression, Agitation and Restlessness Judgement: Poor Diagnostics Vital Signs (24Hr): Vital Signs - 24 hr 09/14/21 06:00 09/14/21 18:16 Temperature 97.5 F Pulse Rate 80 93 Respiratory Rate 18 Blood Pressure 121/74 115/75 Pulse Oximetry 100 Oxygen Delivery Method Room Air Room Air BMI result Body Mass Index 28.3 Labs Results: 09/07/21 08:09 Medications Medications Current Medications Acetaminophen (Acetaminophen 325 Mg Tablet) 650 mg PO Q6H PRN PRN Reason: Headache/Pain Mild Scale (1-3) Last Admin: 09/12/21 06:04 Dose: 650 mg Al Hydroxide/Mg Hydroxide (Magnesium Hydrox/Alum Hydrox 30 Ml Oral.Susp) 30 ml PO Q6H PRN PRN Reason: Heartburn/Nausea Last Admin: 09/11/21 18:13 Dose: 30 ml Chlorpromazine HCl (Chlorpromazine Hcl 25 Mg Tablet) 50 mg PO TID PRN PRN Reason: Anxiety Last Admin: 09/14/21 19:02 Dose: 50 mg Divalproex Sodium (Divalproex Sodium 250 Mg Tablet.Dr) 250 mg PO TID [facility] Last Admin: 09/14/21 19:02 Dose: 250 mg Estradiol (Estradiol 0.5 Mg Tablet) 3 mg PO BID [facility] Last Admin: 09/14/21 19:02 Dose: 3 mg Gabapentin (Gabapentin 400 Mg Capsule) 800 mg PO TID [facility] Last Admin: 09/14/21 19:02 Dose: 800 mg Hydroxyzine HCl (Hydroxyzine Hcl 25 Mg Tablet) 25 mg PO BEDTIME PRN PRN Reason: Anxiety Last Admin: 09/14/21 19:02 Dose: 25 mg Hydroxyzine HCl (Hydroxyzine Hcl 50 Mg Tablet) 50 mg PO Q4H PRN PRN Reason: Anxiety Last Admin: 09/14/21 16:53 Dose: 50 mg Magnesium Hydroxide (Milk Of Magnesia 30 Ml Oral.Susp) 30 ml PO DAILY PRN PRN Reason: Constipation Nicotine Polacrilex (Nicotine Polacrilex 2 Mg Gum) 4 mg BUCCAL Q2H PRN PRN Reason: Nicotine Cravings Patient Own Med ( (Disulfiram 500mg)) 500 mg PO DAILY [facility] Last Admin: 09/14/21 08:07 Dose: 500 mg Patient Own Med ( (Strattera 40 Mg)) 40 mg PO DAILY [facility] Last Admin: 09/14/21 08:07 Dose: 40 mg Sertraline HCl (Sertraline Hcl 25 Mg Tablet) 25 mg PO DAILY [facility] Last Admin: 09/14/21 08:06 Dose: 25 mg Spironolactone (Spironolactone 25 Mg Tablet) 50 mg PO BID [facility] Last Admin: 09/14/21 08:05 Dose: 50 mg Trazodone HCl (Trazodone Hcl 50 Mg Tablet) 50 mg PO BEDTIME PRN PRN Reason: Insomnia Last Admin: 09/11/21 22:07 Dose: 50 mg Allergies Allergies Allergy/AdvReac Type Severity Reaction Status Date / Time naltrexone Allergy Unknown Unknown Verified 09/07/21 16:59 haloperidol [From Haldol] Allergy Unknown Verified 09/06/21 22:06 Penicillins Allergy Unknown Verified 09/06/21 20:32 zyprexa AdvReac Intermediate Confusion Uncoded 09/07/21 17:21 risperdal AdvReac Unknown Uncoded 09/08/21 10:27 Assessment & Plan Assessment & Plan (1) Recurrent major depression-severe: Status: Acute Code(s): F33.2 - Major depressive disorder, recurrent severe without psychotic features (2) Autism spectrum disorder: Status: Acute Code(s): F84.0 - Autistic disorder (3) Alcohol use disorder, moderate, in early remission, dependence: Status: Acute Code(s): F10.21 - Alcohol dependence, in remission Plan Continue current regime. Discharge planning Focus with pt in group on coping skills, anxiety sx mgt. 09/10/21- Continue Sertraline 09/11/21 continue current treatment regimen; defer to primary team for titration of medications 09/12/21 continue current treatment regimen; 09/13/21: Decrease Lexapro to 10 mg daily Behavioral interventions, discussion of discharge with parents 09/14/21: Depakote 250 mg tid. Begin to apply for more comprehensive services for pt for community intervention. I spent minutes with the patient and/or on the patient floor today, greater than?50% of which was spent counseling/coordinating care. Patient educated on: medication risk/benefits and therapeutic strategies Informed Consent: understands and further education needed Reason for contiued inpatient stay Substantial Risk for: harm to self, inability to function and rapid decompensation
[2021-09-14] MEDS: Magnesium Hydrox/Alum Hydrox 30 ML ORAL.SUSP PO (20:31)
[2021-09-15 06:00] VITALS: BP 115/64; PULSE 102; RESP 16; O2SAT 99
[2021-09-15] MEDS: chlorproMAZINE HCl 25 MG TABLET 50 MG PO (06:35)
[2021-09-15] MEDS: hydrOXYzine HCL 50 MG TABLET PO (06:35)
--- NOTE | 2021-09-15 06:37 | PC.NURSE ---
0635: Pt requested that this junior copywriter note that pt is having thoughts of SI with a plan to bash her head against the wall and bite her arm.Medicated for anxiety per pt request at 0635.
[2021-09-15] MEDS: Sertraline HCL 25 MG TABLET PO (08:18)
[2021-09-15] MEDS: Gabapentin 400 MG CAPSULE 800 MG PO ×3 (08:18→20:12)
[2021-09-15] MEDS: Spironolactone 25 MG TABLET 50 MG PO ×2 (08:18→20:12)
[2021-09-15] MEDS: Divalproex Sodium 250 MG TABLET.DR PO ×3 (08:18→20:12)
[2021-09-15] MEDS: estradioL 0.5 MG TABLET 3 MG PO ×2 (13:27→20:12)
[2021-09-15 16:25] VITALS: BP 121/59; PULSE 85; TEMP 35.7; O2SAT 99
--- NOTE | 2021-09-15 18:04 | HO.PSYCHPN ---
Subjective Subjective Date of Service: 09/15/21 Reason For Visit: SI Subjective Notes: Conditional Voluntary Healthcare Proxy: No Guardianship: No Medical Problems Affecting Mental Status: No Interim History: Met with pt to discuss her goals. Discussed my conversations with [facility] and the ability to have pt closer to her home for treatment and for service referral. Pt prefers to remain at [facility]. Discussed application for [place] [facility] case mgt-she agrees. Discussed Sertraline titration, Valproate use, Seroquel prn, Chlorpromazine prn and re-engaging Strattera which she agrees with. [place] call to pt's mother with reviewed discussion of pt's goals and rationale for contacting services in pt's area as care planning for services will need to be intensive. Mother concurs and agrees to assist. She will visit 09/20 11am. Family will go on vacation on 09/24-will set a tentative discharge date for 09/22 so med changes may be continued, pt can attend groups to learn coping skills and work in milieu if behaviors are not present. Pt and mother agree. Medication Compliance: Yes Side effects from medications: No Attending Groups: No Review of Systems Acute medical concerns: No Medical Review of Systems: unchanged Review of Systems Reports behavioral changes Psychiatric: Reports behavioral changes, Reports difficulty concentrating, Reports mood swings and Reports suicidal ideation Mental Status Exam Mental Status Exam Patient Appearance: Disheveled Patient Orientation: Person, Place, Time and Situation Level of Consciousness: Alert Patient Behavior: Talkative and Good Eye Contact Mood Description: Anxious Affect Description: Flat Patient Cognition Impaired: No Ability to Follow Directions: Fair Speech Pattern: Perseverating, Spontaneous Speech, Soft-Spoken and Long Pauses Memory Description: Intact Hallucinations: None Delusions: Not Present Thought Process: Distracted, Rumination and Evasive Thought Content: positive for [place], positive for Obsessional Thoughts, positive for Circumstantial, positive for Perseveration, positive for Preoccupation and positive for Suicidal Ideation Depressive Symptoms: Increased Anxiety, Diff. Making Decisions, Increased Irritability and Thoughts of /Suicide Abnormal Motor Activity Signs and Symptoms: Restlessness Judgement: Fair Diagnostics Vital Signs (24Hr): Vital Signs - 24 hr 09/14/21 18:16 09/15/21 06:00 09/15/21 16:25 Temperature 96.2 F L Pulse Rate 93 102 H 85 Respiratory Rate 16 Blood Pressure 115/75 115/64 121/59 L Pulse Oximetry 99 99 Oxygen Delivery Method Room Air Room Air Room Air BMI result Body Mass Index 28.3 Labs Results: 09/07/21 08:09 Medications Medications Current Medications Acetaminophen (Acetaminophen 325 Mg Tablet) 650 mg PO Q6H PRN PRN Reason: Headache/Pain Mild Scale (1-3) Last Admin: 09/12/21 06:04 Dose: 650 mg Al Hydroxide/Mg Hydroxide (Magnesium Hydrox/Alum Hydrox 30 Ml Oral.Susp) 30 ml PO Q6H PRN PRN Reason: Heartburn/Nausea Last Admin: 09/14/21 20:31 Dose: 30 ml Chlorpromazine HCl (Chlorpromazine Hcl 25 Mg Tablet) 50 mg PO TID PRN PRN Reason: Anxiety Last Admin: 09/15/21 06:35 Dose: 50 mg Divalproex Sodium (Divalproex Sodium 250 Mg Tablet.Dr) 250 mg PO TID [facility] Last Admin: 09/15/21 15:19 Dose: 250 mg Estradiol (Estradiol 0.5 Mg Tablet) 3 mg PO BID [facility] Last Admin: 09/15/21 13:27 Dose: 3 mg Gabapentin (Gabapentin 400 Mg Capsule) 800 mg PO TID [facility] Last Admin: 09/15/21 15:19 Dose: 800 mg Hydroxyzine HCl (Hydroxyzine Hcl 25 Mg Tablet) 25 mg PO BEDTIME PRN PRN Reason: Anxiety Last Admin: 09/14/21 19:02 Dose: 25 mg Hydroxyzine HCl (Hydroxyzine Hcl 50 Mg Tablet) 50 mg PO Q4H PRN PRN Reason: Anxiety Last Admin: 09/15/21 06:35 Dose: 50 mg Magnesium Hydroxide (Milk Of Magnesia 30 Ml Oral.Susp) 30 ml PO DAILY PRN PRN Reason: Constipation Multi-Ingred Cream/Lotion/Oil/Oint (Mineral Oil/Petrolatum,White 106 Gm Tube) 1 appl TOPICAL TID [facility]; Protocol Nicotine Polacrilex (Nicotine Polacrilex 2 Mg Gum) 4 mg BUCCAL Q2H PRN PRN Reason: Nicotine Cravings Patient Own Med ( (Disulfiram 500mg)) 500 mg PO DAILY [facility] Last Admin: 09/15/21 08:18 Dose: 500 mg Patient Own Med ( (Strattera 40 Mg)) 40 mg PO DAILY [facility] Last Admin: 09/15/21 08:18 Dose: 40 mg Quetiapine Fumarate (Quetiapine Fumarate 50 Mg Tablet) 50 mg PO BID PRN PRN Reason: anxiety Sertraline HCl (Sertraline Hcl 50 Mg Tablet) 50 mg PO DAILY [facility] Spironolactone (Spironolactone 25 Mg Tablet) 50 mg PO BID [facility] Last Admin: 09/15/21 08:18 Dose: 50 mg Trazodone HCl (Trazodone Hcl 50 Mg Tablet) 50 mg PO BEDTIME PRN PRN Reason: Insomnia Last Admin: 09/11/21 22:07 Dose: 50 mg Allergies Allergies Allergy/AdvReac Type Severity Reaction Status Date / Time naltrexone Allergy Unknown Unknown Verified 09/07/21 16:59 haloperidol [From Haldol] Allergy Unknown Verified 09/06/21 22:06 Penicillins Allergy Unknown Verified 09/06/21 20:32 zyprexa AdvReac Intermediate Confusion Uncoded 09/07/21 17:21 risperdal AdvReac Unknown Uncoded 09/08/21 10:27 Assessment & Plan Assessment & Plan (1) Recurrent major depression-severe: Status: Acute Code(s): F33.2 - Major depressive disorder, recurrent severe without psychotic features (2) Autism spectrum disorder: Status: Acute Code(s): F84.0 - Autistic disorder (3) Alcohol use disorder, moderate, in early remission, dependence: Status: Acute Code(s): F10.21 - Alcohol dependence, in remission Plan Continue current regime. Discharge planning Focus with pt in group on coping skills, anxiety sx mgt. 09/10/21- Continue Sertraline 09/11/21 continue current treatment regimen; defer to primary team for titration of medications 09/12/21 continue current treatment regimen; 09/13/21: Decrease Lexapro to 10 mg daily Behavioral interventions, discussion of discharge with parents 09/14/21: Depakote 250 mg tid. Begin to apply for more comprehensive services for pt for community intervention. 09/15/21: Continue current regime with titration. Apply for increase in resources for pt upon discharge Re-introduce into milieu groups Discharge planning I spent minutes with the patient and/or on the patient floor today, greater than?50% of which was spent counseling/coordinating care. Patient educated on: therapeutic strategies Informed Consent: further education needed Reason for contiued inpatient stay Substantial Risk for: harm to self, inability to function and rapid decompensation
--- NOTE | 2021-09-15 21:04 | PC.NURSE ---
Staff reported to this junior underwriter that the patient is being intrusive and intentionally spilled water on another patient and will not leave them alone. Patient placed on 5 minute safety checks with an unlocked bathroom per Dr. Mcmullen's telephone order at 2100.
[2021-09-16] MEDS: Sertraline HCL 50 MG TABLET PO (08:02)
[2021-09-16] MEDS: Spironolactone 25 MG TABLET 50 MG PO ×2 (08:03→19:31)
[2021-09-16] MEDS: Gabapentin 400 MG CAPSULE 800 MG PO ×3 (08:03→19:32)
[2021-09-16] MEDS: Divalproex Sodium 250 MG TABLET.DR PO ×3 (08:03→19:33)
[2021-09-16] MEDS: estradioL 0.5 MG TABLET 3 MG PO ×2 (08:03→19:32)
[2021-09-16] MEDS: chlorproMAZINE HCl 25 MG TABLET 50 MG PO (09:14)
[2021-09-16] MEDS: QUEtiapine Fumarate 50 MG TABLET PO (09:14)
--- NOTE | 2021-09-16 10:00 | ECG_ITS ---
Test Reason : R/O QTC PROLONGATION Blood Pressure : / mmHG Vent. Rate : 078 BPM Atrial Rate : 078 BPM P-R Int : 158 ms QRS Dur : 114 ms QT Int : 402 ms P-R-T Axes : 066 -23 068 degrees QTc Int : 458 ms Normal sinus rhythm Normal ECG No previous ECGs available Referred By: Edna Guerrero Electronically Signed By:ELVA MORAN MD
--- NOTE | 2021-09-16 17:31 | P.PNPSI_ITS ---
Subjective Subjective Date of Service: 09/16/21 Reason For Visit: SI Subjective Notes: Conditional Voluntary Healthcare Proxy: No Guardianship: No Medical Problems Affecting Mental Status: No Interim History: Meeting with pt and Eulogio MENDOSA to review requests, boundaries, expectations. Pt asked appropriate questions-discussed return to groups, using cell phone to get sponsor's number, which she did appropriately, unit rules, boundaries, and pt wanting to explore policy and procedures of the unit. Call from mother to discuss concerns about meds. She is concerned that Depakote causes SI as her sister is bipolar and takes Depakote. Reports by history Risperdal made pt agitated, Olanzapine made pt off . Pt reacts strongly to meds, has been on Strattera since age 13-went from [employer] to [employer] courses on Strattera. SI is new since May-there was an incident of SI in 2019 before pt told family she was transgender, but once this was expressed SI was decreased. Mom believes Depakote is causing SI-discussed timing of SI and initiation of Depakote. Pt had [employer] completed 12/10/18 showing Lino Bauman, to have significant gene drug interaction. Valproate, Seroquel, Sertraline were to be used as directed. Thorazine with moderate gene drug interaction. Care discussed with Renee pt's healthcare market consultant from [facility]. Dr. Villanueva will see pt on 09/23/21 940am prior to pt leaving with family on vacation. Medication Compliance: Yes Side effects from medications: No Attending Groups: Yes Review of Systems Acute medical concerns: No Medical Review of Systems: unchanged Review of Systems Reports behavioral changes Psychiatric: Reports anxiety, Reports behavioral changes, Reports depression, Reports difficulty concentrating, Reports hopelessness, Reports paranoia and Reports suicidal ideation Mental Status Exam Mental Status Exam Patient Appearance: Disheveled Patient Orientation: Person, Place, Time and Situation Level of Consciousness: Alert Patient Behavior: Talkative and Good Eye Contact Mood Description: Anxious Affect Description: Flat Patient Cognition Impaired: No Ability to Follow Directions: Fair Speech Pattern: Perseverating, Spontaneous Speech, Soft-Spoken and Long Pauses Memory Description: Intact Hallucinations: None Delusions: Not Present Thought Process: Distracted, Rumination and Evasive Thought Content: positive for [place], positive for Obsessional Thoughts, positive for Circumstantial, positive for Perseveration, positive for Preoccupation and positive for Suicidal Ideation Depressive Symptoms: Increased Anxiety, Diff. Making Decisions, Increased Irritability and Thoughts of /Suicide Abnormal Motor Activity Signs and Symptoms: Restlessness Judgement: Fair Diagnostics Vital Signs (24Hr): BMI result Body Mass Index 28.3 Labs Results: 09/07/21 08:09 Medications Medications Current Medications Acetaminophen (Acetaminophen 325 Mg Tablet) 650 mg PO Q6H PRN PRN Reason: Headache/Pain Mild Scale (1-3) Last Admin: 09/12/21 06:04 Dose: 650 mg Al Hydroxide/Mg Hydroxide (Magnesium Hydrox/Alum Hydrox 30 Ml Oral.Susp) 30 ml PO Q6H PRN PRN Reason: Heartburn/Nausea Last Admin: 09/14/21 20:31 Dose: 30 ml Chlorpromazine HCl (Chlorpromazine Hcl 25 Mg Tablet) 50 mg PO TID PRN PRN Reason: Anxiety Last Admin: 09/16/21 09:14 Dose: 50 mg Divalproex Sodium (Divalproex Sodium 250 Mg Tablet.Dr) 250 mg PO TID [facility] Last Admin: 09/16/21 14:32 Dose: 250 mg Estradiol (Estradiol 0.5 Mg Tablet) 3 mg PO BID [facility] Last Admin: 09/16/21 08:03 Dose: 3 mg Gabapentin (Gabapentin 400 Mg Capsule) 800 mg PO TID [facility] Last Admin: 09/16/21 14:32 Dose: 800 mg Hydroxyzine HCl (Hydroxyzine Hcl 25 Mg Tablet) 25 mg PO BEDTIME PRN PRN Reason: Anxiety Last Admin: 09/14/21 19:02 Dose: 25 mg Hydroxyzine HCl (Hydroxyzine Hcl 50 Mg Tablet) 50 mg PO Q4H PRN PRN Reason: Anxiety Last Admin: 09/15/21 06:35 Dose: 50 mg Magnesium Hydroxide (Milk Of Magnesia 30 Ml Oral.Susp) 30 ml PO DAILY PRN PRN Reason: Constipation Multi-Ingred Cream/Lotion/Oil/Oint (Mineral Oil/Petrolatum,White 106 Gm Tube) 1 appl TOPICAL TID [facility]; Protocol Last Admin: 09/16/21 14:34 Dose: Not Given Nicotine Polacrilex (Nicotine Polacrilex 2 Mg Gum) 4 mg BUCCAL Q2H PRN PRN Reason: Nicotine Cravings Patient Own Med ( (Disulfiram 500mg)) 500 mg PO DAILY [facility] Last Admin: 09/16/21 08:02 Dose: 500 mg Patient Own Med ( (Strattera 40 Mg)) 40 mg PO DAILY [facility] Last Admin: 09/16/21 08:02 Dose: 40 mg Quetiapine Fumarate (Quetiapine Fumarate 50 Mg Tablet) 50 mg PO BID PRN PRN Reason: anxiety Last Admin: 09/16/21 09:14 Dose: 50 mg Sertraline HCl (Sertraline Hcl 50 Mg Tablet) 50 mg PO DAILY [facility] Last Admin: 09/16/21 08:02 Dose: 50 mg Spironolactone (Spironolactone 25 Mg Tablet) 50 mg PO BID [facility] Last Admin: 09/16/21 08:03 Dose: 50 mg Trazodone HCl (Trazodone Hcl 50 Mg Tablet) 50 mg PO BEDTIME PRN PRN Reason: Insomnia Last Admin: 09/11/21 22:07 Dose: 50 mg Allergies Allergies Allergy/AdvReac Type Severity Reaction Status Date / Time naltrexone Allergy Unknown Unknown Verified 09/07/21 16:59 haloperidol [From Haldol] Allergy Unknown Verified 09/06/21 22:06 Penicillins Allergy Unknown Verified 09/06/21 20:32 zyprexa AdvReac Intermediate Confusion Uncoded 09/07/21 17:21 risperdal AdvReac Unknown Uncoded 09/08/21 10:27 Assessment & Plan Assessment & Plan (1) Recurrent major depression-severe: Status: Acute Code(s): F33.2 - Major depressive disorder, recurrent severe without psychotic features (2) Autism spectrum disorder: Status: Acute Code(s): F84.0 - Autistic disorder (3) Alcohol use disorder, moderate, in early remission, dependence: Status: Acute Code(s): F10.21 - Alcohol dependence, in remission Plan Continue current regime. Discharge planning Focus with pt in group on coping skills, anxiety sx mgt. 09/10/21- Continue Sertraline 09/11/21 continue current treatment regimen; defer to primary team for titration of medications 09/12/21 continue current treatment regimen; 09/13/21: Decrease Lexapro to 10 mg daily Behavioral interventions, discussion of discharge with parents 09/14/21: Depakote 250 mg tid. Begin to apply for more comprehensive services for pt for community intervention. 09/15/21: Continue current regime with titration. Apply for increase in resources for pt upon discharge Re-introduce into milieu groups Discharge planning 09/16/21: Decrease Depakote to bid Milieu therapy Discharge planning. I spent minutes with the patient and/or on the patient floor today, greater than?50% of which was spent counseling/coordinating care. Patient educated on: therapeutic strategies Informed Consent: understands and further education needed Reason for contiued inpatient stay Substantial Risk for: harm to self, inability to function and rapid decompensation
[2021-09-16 19:28] VITALS: BP 125/82; PULSE 80
[2021-09-17] MEDS: traZODone HCL 50 MG TABLET PO (02:43)
[2021-09-17] MEDS: estradioL 0.5 MG TABLET 3 MG PO ×2 (08:45→19:28)
[2021-09-17] MEDS: Divalproex Sodium 250 MG TABLET.DR PO ×2 (08:45→19:28)
[2021-09-17] MEDS: Spironolactone 25 MG TABLET 50 MG PO ×2 (08:45→19:28)
[2021-09-17] MEDS: Gabapentin 400 MG CAPSULE 800 MG PO ×3 (08:45→19:28)
[2021-09-17] MEDS: Sertraline HCL 50 MG TABLET PO (08:45)
--- NOTE | 2021-09-17 09:09 | MHC.PM.REST ---
Restraint Documentation Date of Service: 09/17/21 Current Situation: After assessment of the patient, a review of the pertinent medical record and a discussion with nursing staff, I feel the patient requires a restrain intervention. Reaction To: No identified precipitant. Pt awoke she reports depressed, angry, and wanting to Medical Condition: stable. Alert, oriented, talking about her feelings. Threats that I will kill myself when you take me out of restraints Fifteen minute checks is not good enough . I want a one to one and 5 minute checks . Behavioral State: Alert, oriented, expressive of her feelings. Continued Need: Ongoing threats to self harm
[2021-09-17] MEDS: diphenhydrAMINE HCL 50 MG/ML VIAL IM ×2 (09:13→09:15)
--- NOTE | 2021-09-17 10:11 | PC.NURSE ---
At approximately 805 pt sitting at phone and started to hit head against wall. Staff attempted to redirect, and then needed to put hands on pt to prevent pt from injuring herself. At this point pt started swinging and kicking at staff. Pt was restrained in restraint chair. Security called, provider notified, pt recevied IM medications.
--- NOTE | 2021-09-17 10:47 | MHC.PM.REST ---
Restraint Documentation Date of Service: 09/17/21 Time of Documentation: 10:47 Current Situation: After assessment of the patient, a review of the pertinent medical record and a discussion with nursing staff, I feel the patient requires a restrain intervention. Reaction To: pt awake, alert, interactive, in her room in bed. I think I need to learn how to manage my emotions is a less negative way Medical Condition: No current medical concerns, denies pain Behavioral State: Awake, alert, calm, talking- agrees that talking with a power and recovery superintendent is a good idea, wanting to talk with a friend also Continued Need: restraints discontinued
--- NOTE | 2021-09-17 11:21 | PC.NURSE ---
pt in restraints, yelling at staff, Let me out so I can bash my head in . Provider in room. Provider in agreement restraints need to continue. IM meds ordered.
--- NOTE | 2021-09-17 15:08 | P.PNPSI_ITS ---
Subjective Subjective Date of Service: 09/17/21 Reason For Visit: SI Subjective Notes: Conditional Voluntary Healthcare Proxy: No Guardianship: No Medical Problems Affecting Mental Status: No Interim History: Pt reports she awoke this a.m. depressed, lonely, angry, and missing her mom. Reported acute suicidality. She required restraints for SIBS and aggressive, assaultive behaviors. She improved with support from the team and medications, then rested most of the day. Care review with her mom, discussed [place] trial which mom declines at this time. Mom discussed possible effects of nicotine withdrawl causing current sx. Plans to meet with pt and mom on 09/20 to review [facility] application for [place]. Medication Compliance: Yes Side effects from medications: No Attending Groups: No Review of Systems Acute medical concerns: No Medical Review of Systems: unchanged Review of Systems Reports behavioral changes Psychiatric: Reports anxiety, Reports behavioral changes, Reports depression, Reports difficulty concentrating, Reports hopelessness, Reports paranoia and Reports suicidal ideation Mental Status Exam Mental Status Exam Patient Appearance: Disheveled Patient Orientation: Person, Place, Time and Situation Level of Consciousness: Alert Patient Behavior: Talkative and Good Eye Contact Mood Description: Anxious Affect Description: Flat Patient Cognition Impaired: No Ability to Follow Directions: Fair Speech Pattern: Perseverating, Spontaneous Speech, Soft-Spoken and Long Pauses Memory Description: Intact Hallucinations: None Delusions: Not Present Thought Process: Distracted, Rumination and Evasive Thought Content: positive for [place], positive for Obsessional Thoughts, positive for Circumstantial, positive for Perseveration, positive for Preoccupation and positive for Suicidal Ideation Depressive Symptoms: Increased Anxiety, Diff. Making Decisions, Increased Irritability and Thoughts of /Suicide Abnormal Motor Activity Signs and Symptoms: Restlessness Judgement: Fair Diagnostics Vital Signs (24Hr): Vital Signs - 24 hr 09/16/21 19:28 Pulse Rate 80 Blood Pressure 125/82 BMI result Body Mass Index 28.3 Labs Results: 09/07/21 08:09 Medications Medications Current Medications Acetaminophen (Acetaminophen 325 Mg Tablet) 650 mg PO Q6H PRN PRN Reason: Headache/Pain Mild Scale (1-3) Last Admin: 09/12/21 06:04 Dose: 650 mg Al Hydroxide/Mg Hydroxide (Magnesium Hydrox/Alum Hydrox 30 Ml Oral.Susp) 30 ml PO Q6H PRN PRN Reason: Heartburn/Nausea Last Admin: 09/14/21 20:31 Dose: 30 ml Chlorpromazine HCl (Chlorpromazine Hcl 25 Mg Tablet) 50 mg PO TID PRN PRN Reason: Anxiety Last Admin: 09/16/21 09:14 Dose: 50 mg Divalproex Sodium (Divalproex Sodium 250 Mg Tablet.Dr) 250 mg PO BID [facility] Last Admin: 09/17/21 08:45 Dose: 250 mg Estradiol (Estradiol 0.5 Mg Tablet) 3 mg PO BID [facility] Last Admin: 09/17/21 08:45 Dose: 3 mg Gabapentin (Gabapentin 400 Mg Capsule) 800 mg PO TID [facility] Last Admin: 09/17/21 14:20 Dose: 800 mg Hydroxyzine HCl (Hydroxyzine Hcl 25 Mg Tablet) 25 mg PO BEDTIME PRN PRN Reason: Anxiety Last Admin: 09/14/21 19:02 Dose: 25 mg Hydroxyzine HCl (Hydroxyzine Hcl 50 Mg Tablet) 50 mg PO Q4H PRN PRN Reason: Anxiety Last Admin: 09/15/21 06:35 Dose: 50 mg Magnesium Hydroxide (Milk Of Magnesia 30 Ml Oral.Susp) 30 ml PO DAILY PRN PRN Reason: Constipation Multi-Ingred Cream/Lotion/Oil/Oint (Mineral Oil/Petrolatum,White 106 Gm Tube) 1 appl TOPICAL TID [facility]; Protocol Last Admin: 09/17/21 14:22 Dose: Not Given Nicotine Polacrilex (Nicotine Polacrilex 2 Mg Gum) 4 mg BUCCAL Q2H PRN PRN Reason: Nicotine Cravings Patient Own Med ( (Disulfiram 500mg)) 500 mg PO DAILY [facility] Last Admin: 09/17/21 08:55 Dose: 500 mg Patient Own Med ( (Strattera 40 Mg)) 40 mg PO DAILY [facility] Last Admin: 09/17/21 08:55 Dose: 40 mg Quetiapine Fumarate (Quetiapine Fumarate 50 Mg Tablet) 50 mg PO BID PRN PRN Reason: anxiety Last Admin: 09/16/21 09:14 Dose: 50 mg Sertraline HCl (Sertraline Hcl 50 Mg Tablet) 50 mg PO DAILY [facility] Last Admin: 09/17/21 08:45 Dose: 50 mg Spironolactone (Spironolactone 25 Mg Tablet) 50 mg PO BID [facility] Last Admin: 09/17/21 08:45 Dose: 50 mg Trazodone HCl (Trazodone Hcl 50 Mg Tablet) 50 mg PO BEDTIME PRN PRN Reason: Insomnia Last Admin: 09/17/21 02:43 Dose: 50 mg Allergies Allergies Allergy/AdvReac Type Severity Reaction Status Date / Time naltrexone Allergy Unknown Unknown Verified 09/07/21 16:59 haloperidol [From Haldol] Allergy Unknown Verified 09/06/21 22:06 Penicillins Allergy Unknown Verified 09/06/21 20:32 zyprexa AdvReac Intermediate Confusion Uncoded 09/07/21 17:21 risperdal AdvReac Unknown Uncoded 09/08/21 10:27 Assessment & Plan Assessment & Plan (1) Recurrent major depression-severe: Status: Acute Code(s): F33.2 - Major depressive disorder, recurrent severe without psychotic features (2) Autism spectrum disorder: Status: Acute Code(s): F84.0 - Autistic disorder (3) Alcohol use disorder, moderate, in early remission, dependence: Status: Acute Code(s): F10.21 - Alcohol dependence, in remission Plan Continue current regime. Discharge planning Focus with pt in group on coping skills, anxiety sx mgt. 09/10/21- Continue Sertraline 09/11/21 continue current treatment regimen; defer to primary team for titration of medications 09/12/21 continue current treatment regimen; 09/13/21: Decrease Lexapro to 10 mg daily Behavioral interventions, discussion of discharge with parents 09/14/21: Depakote 250 mg tid. Begin to apply for more comprehensive services for pt for community intervention. 09/15/21: Continue current regime with titration. Apply for increase in resources for pt upon discharge Re-introduce into milieu groups Discharge planning 09/16/21: Decrease Depakote to bid Milieu therapy Discharge planning. 09/17/21 Clonidine 0.1 mg bid I spent minutes with the patient and/or on the patient floor today, greater than?50% of which was spent counseling/coordinating care. Reason for contiued inpatient stay Substantial Risk for: harm to self, inability to function and rapid decompensation
[2021-09-17 18:19] VITALS: BP 135/83; PULSE 86
[2021-09-17] MEDS: cloNIDine HCL 0.1 MG TABLET PO (19:28)
[2021-09-18 06:00] VITALS: BP 118/78; PULSE 80
[2021-09-18] MEDS: estradioL 0.5 MG TABLET 3 MG PO ×2 (08:47→19:13)
[2021-09-18] MEDS: Acetaminophen 325 MG TABLET 650 MG PO (08:48)
[2021-09-18] MEDS: Spironolactone 25 MG TABLET 50 MG PO ×2 (08:48→19:13)
[2021-09-18] MEDS: Divalproex Sodium 250 MG TABLET.DR PO ×2 (08:48→19:13)
[2021-09-18] MEDS: chlorproMAZINE HCl 25 MG TABLET 50 MG PO ×2 (08:48→14:18)
[2021-09-18] MEDS: Gabapentin 400 MG CAPSULE 800 MG PO ×3 (08:48→19:13)
[2021-09-18] MEDS: cloNIDine HCL 0.1 MG TABLET PO ×2 (08:49→19:13)
[2021-09-18] MEDS: Sertraline HCL 50 MG TABLET PO (08:49)
[2021-09-18 19:12] VITALS: BP 117/58; PULSE 100
[2021-09-18] MEDS: traZODone HCL 50 MG TABLET PO (19:13)
--- NOTE | 2021-09-18 22:42 | HO.PSYCHPN ---
Subjective Subjective Date of Service: 09/18/21 Reason For Visit: SI Subjective Notes: Conditional Voluntary Interim History: Patient has been off of one-to-one remains flat depressed denies active SI. Is stating he is feeling better than from admission seems to have limited id is regarding coping strategies for internal states has had DBT treatment Mental Status Exam Mental Status Exam Patient Appearance: Disheveled Patient Orientation: Person, Place, Time and Situation Level of Consciousness: Alert Patient Behavior: Talkative and Good Eye Contact Mood Description: Anxious Affect Description: Flat Patient Cognition Impaired: No Ability to Follow Directions: Fair Speech Pattern: Perseverating, Spontaneous Speech, Soft-Spoken and Long Pauses Memory Description: Intact Hallucinations: None Delusions: Not Present Thought Process: Distracted, Rumination and Evasive Thought Content: positive for [place], positive for Obsessional Thoughts, positive for Circumstantial, positive for Perseveration, positive for Preoccupation and positive for Suicidal Ideation Depressive Symptoms: Increased Anxiety, Diff. Making Decisions, Increased Irritability and Thoughts of /Suicide Abnormal Motor Activity Signs and Symptoms: Restlessness Judgement: Fair Diagnostics Vital Signs (24Hr): Vital Signs - 24 hr 09/18/21 06:00 09/18/21 19:12 Pulse Rate 80 100 Blood Pressure 118/78 117/58 L BMI result Body Mass Index 28.3 Labs Results: 09/07/21 08:09 Medications Medications Current Medications Acetaminophen (Acetaminophen 325 Mg Tablet) 650 mg PO Q6H PRN PRN Reason: Headache/Pain Mild Scale (1-3) Last Admin: 09/18/21 08:48 Dose: 650 mg Al Hydroxide/Mg Hydroxide (Magnesium Hydrox/Alum Hydrox 30 Ml Oral.Susp) 30 ml PO Q6H PRN PRN Reason: Heartburn/Nausea Last Admin: 09/14/21 20:31 Dose: 30 ml Chlorpromazine HCl (Chlorpromazine Hcl 25 Mg Tablet) 50 mg PO TID PRN PRN Reason: Anxiety Last Admin: 09/18/21 14:18 Dose: 50 mg Clonidine HCl (Clonidine Hcl 0.1 Mg Tablet) 0.1 mg PO BID [facility]; Protocol Last Admin: 09/18/21 19:13 Dose: 0.1 mg Divalproex Sodium (Divalproex Sodium 250 Mg Tablet.Dr) 250 mg PO BID [facility] Last Admin: 09/18/21 19:13 Dose: 250 mg Estradiol (Estradiol 0.5 Mg Tablet) 3 mg PO BID [facility] Last Admin: 09/18/21 19:13 Dose: 3 mg Gabapentin (Gabapentin 400 Mg Capsule) 800 mg PO TID [facility] Last Admin: 09/18/21 19:13 Dose: 800 mg Hydroxyzine HCl (Hydroxyzine Hcl 25 Mg Tablet) 25 mg PO BEDTIME PRN PRN Reason: Anxiety Last Admin: 09/14/21 19:02 Dose: 25 mg Hydroxyzine HCl (Hydroxyzine Hcl 50 Mg Tablet) 50 mg PO Q4H PRN PRN Reason: Anxiety Last Admin: 09/15/21 06:35 Dose: 50 mg Magnesium Hydroxide (Milk Of Magnesia 30 Ml Oral.Susp) 30 ml PO DAILY PRN PRN Reason: Constipation Multi-Ingred Cream/Lotion/Oil/Oint (Mineral Oil/Petrolatum,White 106 Gm Tube) 1 appl TOPICAL TID ON [facility]; Protocol Last Admin: 09/18/21 19:28 Dose: Not Given Nicotine Polacrilex (Nicotine Polacrilex 2 Mg Gum) 4 mg BUCCAL Q2H PRN PRN Reason: Nicotine Cravings Patient Own Med ( (Disulfiram 500mg)) 500 mg PO DAILY [facility] Last Admin: 09/18/21 08:49 Dose: 500 mg Patient Own Med ( (Strattera 40 Mg)) 40 mg PO DAILY [facility] Last Admin: 09/18/21 08:49 Dose: 40 mg Quetiapine Fumarate (Quetiapine Fumarate 50 Mg Tablet) 50 mg PO BID PRN PRN Reason: anxiety Last Admin: 09/16/21 09:14 Dose: 50 mg Sertraline HCl (Sertraline Hcl 50 Mg Tablet) 50 mg PO DAILY [facility] Last Admin: 09/18/21 08:49 Dose: 50 mg Spironolactone (Spironolactone 25 Mg Tablet) 50 mg PO BID [facility] Last Admin: 09/18/21 19:13 Dose: 50 mg Trazodone HCl (Trazodone Hcl 50 Mg Tablet) 50 mg PO BEDTIME PRN PRN Reason: Insomnia Last Admin: 09/18/21 19:13 Dose: 50 mg Allergies Allergies Allergy/AdvReac Type Severity Reaction Status Date / Time naltrexone Allergy Unknown Unknown Verified 09/07/21 16:59 haloperidol [From Haldol] Allergy Unknown Verified 09/06/21 22:06 Penicillins Allergy Unknown Verified 09/06/21 20:32 zyprexa AdvReac Intermediate Confusion Uncoded 09/07/21 17:21 risperdal AdvReac Unknown Uncoded 09/08/21 10:27 Assessment & Plan Assessment & Plan (1) Autism spectrum disorder: Status: Acute Code(s): F84.0 - Autistic disorder (2) Recurrent major depression-severe: Status: Acute Code(s): F33.2 - Major depressive disorder, recurrent severe without psychotic features (3) Alcohol use disorder, moderate, in early remission, dependence: Status: Acute Code(s): F10.21 - Alcohol dependence, in remission Plan 26 yo female, hx of depression, autism spectrum-asperger's disorder, alcohol use disorder with several recent in pt admission for SI. Pt became suicidal while at the [facility] [employer] and is transferred from [facility]. Meds clarified with [facility], [facility] and pt's mother due to recent changes. Pt reports that she is no longer suicidal, had thoughts for 1-2 hours on 09/04, has good coping skills, has reasons to live and is asking to discharge. Plan: Re-establish regime- pt has had some recent changes and needs to allow time to evaluate efficacy. Family meeting with mom Collateral contact as needed. Assessment and plan 09/18/2021 Patient seen in mail you case reviewed with nurse practitioner chart reviewed patient seen. Patient chronic multiple admissions history of DBT seems to have a mood disorder with limited strategies. Would trying get information from [facility]. Continue Strattera and sertraline would try and limit inpatient admission Given chronicity and left the lack of active see of multiple inpatient admissions I spent minutes with the patient and/or on the patient floor today, greater than?50% of which was spent counseling/coordinating care. Reason for contiued inpatient stay Substantial Risk for: harm to self and rapid decompensation
[2021-09-19 06:00] VITALS: BP 125/71; PULSE 89
[2021-09-19] MEDS: chlorproMAZINE HCl 25 MG TABLET 50 MG PO (09:19)
[2021-09-19] MEDS: Divalproex Sodium 250 MG TABLET.DR PO ×2 (09:20→19:19)
[2021-09-19] MEDS: Gabapentin 400 MG CAPSULE 800 MG PO ×3 (09:20→19:19)
[2021-09-19] MEDS: Sertraline HCL 50 MG TABLET PO (09:20)
[2021-09-19] MEDS: cloNIDine HCL 0.1 MG TABLET PO ×2 (09:20→19:19)
[2021-09-19] MEDS: Acetaminophen 325 MG TABLET 650 MG PO (09:20)
[2021-09-19] MEDS: estradioL 0.5 MG TABLET 3 MG PO ×2 (09:20→19:19)
[2021-09-19] MEDS: Spironolactone 25 MG TABLET 50 MG PO ×2 (09:20→19:19)
[2021-09-19 18:26] VITALS: BP 121/78; PULSE 88
[2021-09-19 19:18] VITALS: BP 134/65; PULSE 100
[2021-09-19] MEDS: traZODone HCL 50 MG TABLET PO ×2 (19:19→22:51)
--- NOTE | 2021-09-19 23:56 | P.PNPSI_ITS ---
Subjective Subjective Date of Service: 09/19/21 Reason For Visit: SI Subjective Notes: Conditional Voluntary Healthcare Proxy: No Guardianship: No Interim History: Patient has been out of his room more somewhat [place]ale[place] affect and more engaged with other patients on the unit. Somewhat disheveled no active self-harming behavior able to discuss wanting to go on vacation with his family. she remains somewhat guarded regarding issues that trigger his suicidality I am just depressed ?does have a history of DBT treatment seems resistant to the thought that outside of medication she might have strategies. Could not really elicit clear background reasons why the patient has had so many admissions over the past year. [facility] not [facility] Medication Compliance: Yes Review of Systems Medical Review of Systems: unchanged Mental Status Exam Mental Status Exam Patient Appearance: Disheveled Patient Orientation: Person, Place, Time and Situation Level of Consciousness: Alert Patient Behavior: Isolative and Good Eye Contact Behavior Comments: Somewhat less isolative remains somewhat disheveled Mood Description: Constricted, Depressed, Anxious and Flat Affect Description: Constricted and Flat Patient Cognition Impaired: No Ability to Follow Directions: Good Speech Pattern: Perseverating, Impoverished, Monotone, Spontaneous Speech, Soft- Spoken and Long Pauses Memory Description: Intact Hallucinations: None Delusions: Not Present Thought Process: Rumination and Evasive Thought Content: positive for [place], positive for Obsessional Thoughts, positive for Circumstantial, positive for Perseveration, positive for Poverty of Content, positive for Preoccupation and positive for Suicidal Ideation (Denies current active SI or plan) Depressive Symptoms: Increased Anxiety, Diff. Making Decisions, Increased Irritability and Thoughts of /Suicide Abnormal Motor Activity Signs and Symptoms: Restlessness Judgement: Fair Diagnostics Vital Signs (24Hr): Vital Signs - 24 hr 09/19/21 06:00 09/19/21 18:26 09/19/21 19:18 Pulse Rate 89 88 100 Blood Pressure 125/71 121/78 134/65 BMI result Body Mass Index 28.3 Labs Results: 09/07/21 08:09 Medications Medications Current Medications Acetaminophen (Acetaminophen 325 Mg Tablet) 650 mg PO Q6H PRN PRN Reason: Headache/Pain Mild Scale (1-3) Last Admin: 09/19/21 09:20 Dose: 650 mg Al Hydroxide/Mg Hydroxide (Magnesium Hydrox/Alum Hydrox 30 Ml Oral.Susp) 30 ml PO Q6H PRN PRN Reason: Heartburn/Nausea Last Admin: 09/14/21 20:31 Dose: 30 ml Chlorpromazine HCl (Chlorpromazine Hcl 25 Mg Tablet) 50 mg PO TID PRN PRN Reason: Anxiety Last Admin: 09/19/21 09:19 Dose: 50 mg Clonidine HCl (Clonidine Hcl 0.1 Mg Tablet) 0.1 mg PO BID [facility]; Protocol Last Admin: 09/19/21 19:19 Dose: 0.1 mg Divalproex Sodium (Divalproex Sodium 250 Mg Tablet.Dr) 250 mg PO BID [facility] Last Admin: 09/19/21 19:19 Dose: 250 mg Estradiol (Estradiol 0.5 Mg Tablet) 3 mg PO BID [facility] Last Admin: 09/19/21 19:19 Dose: 3 mg Gabapentin (Gabapentin 400 Mg Capsule) 800 mg PO TID [facility] Last Admin: 09/19/21 19:19 Dose: 800 mg Hydroxyzine HCl (Hydroxyzine Hcl 25 Mg Tablet) 25 mg PO BEDTIME PRN PRN Reason: Anxiety Last Admin: 09/14/21 19:02 Dose: 25 mg Hydroxyzine HCl (Hydroxyzine Hcl 50 Mg Tablet) 50 mg PO Q4H PRN PRN Reason: Anxiety Last Admin: 09/15/21 06:35 Dose: 50 mg Magnesium Hydroxide (Milk Of Magnesia 30 Ml Oral.Susp) 30 ml PO DAILY PRN PRN Reason: Constipation Multi-Ingred Cream/Lotion/Oil/Oint (Mineral Oil/Petrolatum,White 106 Gm Tube) 1 appl TOPICAL TID [facility]; Protocol Last Admin: 09/19/21 19:19 Dose: Not Given Nicotine Polacrilex (Nicotine Polacrilex 2 Mg Gum) 4 mg BUCCAL Q2H PRN PRN Reason: Nicotine Cravings Patient Own Med ( (Disulfiram 500mg)) 500 mg PO DAILY [facility] Last Admin: 09/19/21 09:19 Dose: 500 mg Patient Own Med ( (Strattera 40 Mg)) 40 mg PO DAILY [facility] Last Admin: 09/19/21 09:19 Dose: 40 mg Quetiapine Fumarate (Quetiapine Fumarate 50 Mg Tablet) 50 mg PO BID PRN PRN Reason: anxiety Last Admin: 09/16/21 09:14 Dose: 50 mg Sertraline HCl (Sertraline Hcl 50 Mg Tablet) 50 mg PO DAILY [facility] Last Admin: 09/19/21 09:20 Dose: 50 mg Spironolactone (Spironolactone 25 Mg Tablet) 50 mg PO BID [facility] Last Admin: 09/19/21 19:19 Dose: 50 mg Trazodone HCl (Trazodone Hcl 50 Mg Tablet) 50 mg PO BEDTIME PRN PRN Reason: Insomnia Last Admin: 09/19/21 22:51 Dose: 50 mg Allergies Allergies Allergy/AdvReac Type Severity Reaction Status Date / Time naltrexone Allergy Unknown Unknown Verified 09/07/21 16:59 haloperidol [From Haldol] Allergy Unknown Verified 09/06/21 22:06 Penicillins Allergy Unknown Verified 09/06/21 20:32 zyprexa AdvReac Intermediate Confusion Uncoded 09/07/21 17:21 risperdal AdvReac Unknown Uncoded 09/08/21 10:27 Assessment & Plan Assessment & Plan (1) Autism spectrum disorder: Status: Acute Code(s): F84.0 - Autistic disorder (2) Recurrent major depression-severe: Status: Acute Code(s): F33.2 - Major depressive disorder, recurrent severe without psychotic features (3) Alcohol use disorder, moderate, in early remission, dependence: Status: Acute Code(s): F10.21 - Alcohol dependence, in remission Plan 26 yo female, hx of depression, autism spectrum-asperger's disorder, alcohol use disorder with several recent in pt admission for SI. Pt became suicidal [facility] at [facility] and is transferred from [facility]. Meds clarified with [facility], [facility] and pt's mother due to recent changes. Pt reports that she is no longer suicidal, had thoughts for 1-2 hours on 09/04, has good coping skills, has reasons to live and is asking to discharge. Plan: Re-establish regime- pt has had some recent changes and needs to allow time to evaluate efficacy. Family meeting with mom Collateral contact as needed. Assessment and plan 09/18/2021 Patient seen in mail you case reviewed with nurse practitioner chart reviewed patient seen. Patient chronic multiple admissions history of DBT seems to have a mood disorder with limited strategies. Would trying get information from [facility]. Continue Strattera and sertraline would try and limit inpatient admission Given chronicity and left the lack of active see of multiple inpatient admissions Assessment and Plan 09/19/2021 Patient with history of multiple psychiatric hospitalizations at [facility] admitted here after [place] acute [place]ic[place]. Patient had episode of self-harming behavior here has been flat depressed somewhat guarded resistant to the idea of strategies to manage his chronic depressive and suicidal thoughts in addition to medication. Difficult to ascertain what triggers are for suicidality and potential secondary gain to repeated hospitalization. Patient has had some experience with DBT this is unclear and clearly should and would benefit from active DBT treatment. If it is not been done previously consideration could be given to TMS [facility] has extensive TMS experience I spent minutes with the patient and/or on the patient floor today, grea ter than?50% of which was spent counseling/coordinating care. Reason for contiued inpatient stay Substantial Risk for: harm to self and rapid decompensation
[2021-09-20] MEDS: estradioL 0.5 MG TABLET 3 MG PO (08:58)
[2021-09-20] MEDS: Sertraline HCL 50 MG TABLET PO (08:59)
[2021-09-20] MEDS: Gabapentin 400 MG CAPSULE 800 MG PO (08:59)
[2021-09-20] MEDS: Divalproex Sodium 250 MG TABLET.DR PO (08:59)
[2021-09-20] MEDS: Spironolactone 25 MG TABLET 50 MG PO (08:59)
--- NOTE | 2021-09-20 16:30 | PM.PSYDC ---
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 Has provider been notified: No Attending physician on discharge: Milan Ochoa Discharging clinician: Edna Guerrero DS: Diagnosis Discharge Diagnosis (1) Autism spectrum disorder: Status: Acute (2) Recurrent major depression-severe: Status: Acute (3) Alcohol use disorder, moderate, in early remission, dependence: Status: Acute DS: Medications Discharge Medications Home Medications: Previous Rx's Medication Instructions Recorded Antabuse 500 mg PO DAILY #30 tabs 09/07/21 disulfiram 500 mg tablet 500 mg PO DAILY #30 tabs 09/07/21 Antabuse 500 mg PO DAILY #30 tabs 09/20/21 Strattera 40 mg PO DAILY #30 caps 09/20/21 divalproex 250 mg tablet,delayed 250 mg PO DAILY #4 tabs 09/20/21 release (Depakote) estradiol 3 mg PO BID #60 tabs 09/20/21 quetiapine 50 mg tablet 50 mg PO BID PRN anxiety #60 tabs 09/20/21 sertraline 50 mg tablet 50 mg PO DAILY #30 tabs 09/20/21 spironolactone 50 mg PO BID #60 tabs 09/20/21 Mental Status Exam Mental Status Exam Patient Appearance: Disheveled Patient Orientation: Person, Place, Time and Situation Level of Consciousness: Alert Patient Behavior: Isolative and Good Eye Contact Behavior Comments: Somewhat less isolative remains somewhat disheveled Mood Description: Constricted, Depressed, Anxious and Flat Affect Description: Constricted and Flat Patient Cognition Impaired: No Ability to Follow Directions: Good Speech Pattern: Perseverating, Impoverished, Monotone, Spontaneous Speech, Soft-Spoken and Long Pauses Memory Description: Intact Hallucinations: None Delusions: Not Present Thought Process: Rumination and Evasive Thought Content: positive for [place], positive for Obsessional Thoughts, positive for Circumstantial, positive for Perseveration, positive for Poverty of Content and positive for Preoccupation Depressive Symptoms: Increased Anxiety, Diff. Making Decisions and Increased Irritability Abnormal Motor Activity Signs and Symptoms: Restlessness Judgement: Fair DS: Summary Hospital Course Hospital Course: Admission to adult psychiatry for exacerbation of suicidality in the context of Autism Spectrum Disorder and Recurrent Major Depression. Family reports 25+ admissions since Apr 2021 due to +SI and behavioral dyscontrol. Pt in process of gender reassignment, male to female, struggling with sobriety from alcohol as well. Pt lives about [place] from [facility], in [place] and became suicidal at [employer]. Pt is her own guardian, however, parents are very supportive and involved. Lexapro discontinued and Setraline trial initiated, Valproate initiated, but tapered as mother wanted it stopped, Seroquel, Chlorpromazine initiated to manage agitation, Antabuse was maintained and Strattera was late in being maintained, as mother needed to bring a supply from home. Clonidine trialed and stopped. Mother requested minimal interventions with medications, however, pt required a few episodes of restraint during admission due to suicidality, anger. Pt was unwilling to utilize groups and the milieu. Application was submitted for DMH/DDS services from [place] and pt stabilized as family was leaving on vacation and she wanted to be included in this trip. OP Team with [facility] was kept in contact with. They will meet with pt before the family trip on 09/23/21 to review her care. Time spent discussing smoking cessation with patient: 3 to 10 minutes Status at Discharge Functional status at discharge: independent ambulation Overall status at discharge: patient is back to baseline Time Spent with Patient Time attestation: Total time spent providing and/or coordinating discharge services: 60 Time spent: Greater than 30 minutes Discharge Plan Discharge Patient Disposition: Home, Self-Care Discharge Diagnosis: Autism Spectrum Disorder Recurrent Major Depression, Severe Alcohol Use Disorder Referrals: MORRIS RODRIGUEZ [Other] - 09/23/21 9:40 am (PCP notified and will call back with an appointment, if pt has left they will call back patient) Discharge Medications: New disulfiram 500 mg tablet 500 mg PO DAILY Qty: 30 0RF quetiapine 50 mg Tablet 50 mg PO BID PRN (Reason: anxiety) Qty: 60 0RF sertraline 50 mg Tablet 50 mg PO DAILY Qty: 30 0RF Antabuse 500 mg PO DAILY Qty: 30 0RF divalproex [Depakote] 250 mg tablet,delayed release (DR/EC) 250 mg PO DAILY Qty: 4 0RF Continued Antabuse 500 mg PO DAILY Qty: 30 0RF Strattera 40 mg PO DAILY Qty: 30 0RF estradiol 3 mg PO BID Qty: 60 0RF spironolactone 50 mg PO BID Qty: 60 0RF Discontinued Lexapro 20 mg PO DAILY hydroxyzine HCl 50 mg PO Q4H PRN (Reason: Anxiety) Discharge Orders: Discharge Order (Routine); Ordered 09/20/21 Ordered By: Edna Guerrero Diet: Advance to usual diet Activity on Discharge: As tolerated Stand Alone Forms: Patient Portal Discharge page, Community Support Care Plan Goals: Mood stablization Behavioral stabilization Work on maintaining sobriety Health Concerns: Autism spectrum disorder Recurrent major depression Alcohol Use Disorder Plan of Treatment: Attend follow up appointments Take medications as directed We have initiated an application to [facility] Division of Developmental Disabilities for services from the Department of Mental Health. We will mail you a copy of the completed application and you will need to submit paperwork to complete this application. Assessment: Pt asking for discharge. Denies suicidality No evidence of psychotic thought process Behaviorally in appropriate control, engaged with her mother, and feeling prepared to leave. Discharge Date/Time: 09/20/21 12:48
== END 2021-09-20 12:48 | disposition home or self-care (01) | DRG 751 ==
PROVIDERS: Psychiatry & Neurology Psychiatry; Admitting Provider Psychiatry & Neurology Psychiatry; Visit Provider Clinical Nurse Specialist Psychiatric/Mental Health, Adult
DX: F33.2 Major depressive disorder, recurrent severe without psychotic features (principal); R45.851 Suicidal ideations; F84.0 Autistic disorder; F10.20 Alcohol dependence, uncomplicated; F17.210 Nicotine dependence, cigarettes, uncomplicated; Z88.0 Allergy status to penicillin; Z71.6 Tobacco abuse counseling; F64.0 Transsexualism; Z88.8 Allergy status to other drugs, medicaments and biological substances; Z79.899 Other long term (current) drug therapy
CPT/HCPCS: 36415; 80053; 80061; 82607; 82746; 83036; 84439; 84443; 93005; J1200; J2060; J3230; Q0163